=== PATIENT | male | born 1965 | race Two or more races ===

== ENCOUNTER 2017-05-29 12:31 | Emergency (ER) | payer MEDICAID ==
[~2017-05-29] VITALS: Ht 160 cm; Wt 58.1 kg
[~2017-05-29 12:31] MED LIST: ALBUAER3 IN
[2017-05-29 12:45] VITALS: BP 104/53
== END 2017-05-29 14:41 | disposition home or self-care (01) ==
LOC: ER 12:38
DX: S90.02XA Contusion of left ankle, initial encounter (principal); M19.072 Primary osteoarthritis, left ankle and foot; J45.909 Unspecified asthma, uncomplicated; F17.210 Nicotine dependence, cigarettes, uncomplicated; Z79.899 Other long term (current) drug therapy
CPT/HCPCS: 73610

== ENCOUNTER 2018-10-21 14:40 | Emergency (ER) | payer MEDICAID ==
[~2018-10-21] VITALS: Ht 167.6 cm; Wt 63.5 kg
[2018-10-21 14:42] VITALS: BP 118/77
[2018-10-21] MEDS ORDERED: ALBUTEROL SULF 2.5 MG/0.5ML(0.5%) NEB SOLN NEB ONE (16:30)
[2018-10-21] MEDS ORDERED: IPRATROPIUM BROM 0.5 MG/2.5ML INH SOL NEB ONE (16:30)
== END 2018-10-21 17:00 | disposition home or self-care (01) ==
LOC: EDBD 14:40 → ER 14:55
DX: J45.909 Unspecified asthma, uncomplicated (principal); F17.210 Nicotine dependence, cigarettes, uncomplicated; F12.10 Cannabis abuse, uncomplicated; F15.10 Other stimulant abuse, uncomplicated
CPT/HCPCS: 71046; 93005; 94640; 99283; J7611; J7644

== ENCOUNTER 2018-10-25 02:51 | Emergency (ER) | payer MEDICAID ==
[~2018-10-25] VITALS: Ht 170.2 cm; Wt 63.5 kg
[2018-10-25 03:42] LABS: Basophils # (auto) 0.1 uL; Basophils % (auto) 1.2 % (0.0-2.0); Eosinophils # (auto) 0.6 uL; Eosinophils % (auto) 7.7 % (0.0-7.0); Hematocrit 42.4 % (41.0-53.0); Hemoglobin 14.5 g/dL (13.5-17.5); Lymphocytes % (auto) 23.7 % (10.0-50.0); Mean Corpuscular Hemoglobin 31.6 pg (28.0-32.0); Mean Corpuscular Hgb Conc. 34.2 g/dL (32.0-36.0); Mean Corpuscular Volume 92.5 fL (80.0-100.0); Monocytes # (auto) 0.8 uL; Monocytes % (auto) 9.2 % (0.0-12.0); Neutrophils # (auto) 4.9 uL; Neutrophils % (auto) 58.2 % (37.0-80.0); Nucleated Red Blood Cells % 0.1 %; Platelet Count (auto) 316 10^3/uL (140-450); Red Blood Cells 4.58 10^6/uL (4.5-5.90); Red Cell Distribution Width 13.4 % (11.8-14.3); White Blood Cell 8.3 10^3/uL (4.4-10.8)
[2018-10-25 04:00] LABS: Salicylate < 1.7 mg/dL (2.8-20.0)
[2018-10-25 04:02] LABS: Albumin 2.9 g/dL (3.4-5.0); Anion Gap 4 (5-15); BUN/Creatinine Ratio 18.3; Blood Alcohol < 3.0 mg/dL (0-5); Blood Urea Nitrogen 13 mg/dL (7-18); Calcium 7.7 mg/dL (8.5-10.1); Carbon Dioxide 27 mmol/L (21-32); Chloride 108 mmol/L (98-107); GFR African American 150 mL/min; GFR Non-African American 124 mL/min; Glucose 98 mg/dL (74-106); INR 0.94 (0.9-1.15); Magnesium 2.4 mg/dL (1.6-2.6); Partial Thromboplastin Time 30.3 sec (23.78-33.04); Potassium 3.6 mmol/L (3.5-5.1); Prothrombin Time 10.1 sec (9.27-12.13); Sodium 139 mmol/L (136-145)
[2018-10-25 04:07] LABS: Acetaminophen < 2.0 ug/mL (10-30); Alanine Aminotransferase 19 U/L (16-61); Alkaline Phosphatase 109 U/L (45-117); Aspartate Aminotransferase 15 U/L (15-37); Bilirubin, Total 0.5 mg/dL (0.2-1.0); Total Protein 7.1 g/dL (6.4-8.2)
[2018-10-25 07:30] VITALS: BP 120/83
[2018-10-25] MEDS ORDERED: cefTRIAXone SOD 1,000 MG VL IM ONE (07:30)
[2018-10-25] MEDS ORDERED: methylPREDNISolone SOD SUCC 125 MG/2 ML VL IM ONE (07:30)
[2018-10-25] MEDS ORDERED: ALBUTEROL SULF 2.5 MG/0.5ML(0.5%) NEB SOLN NEB ONE (07:30)
== END 2018-10-25 10:25 | disposition home or self-care (01) ==
LOC: EDBD 02:51 → ER 02:56
DX: J44.9 Chronic obstructive pulmonary disease, unspecified (principal); F12.10 Cannabis abuse, uncomplicated
CPT/HCPCS: 36415; 71046; 80053; 80320; 80329; 82962; 83735; 83880; 84484; 85025; 85610; 85730; 93005; 94640; 96372; 99284; J0696; J2930; J7611

== ENCOUNTER 2018-10-31 03:15 | Emergency (ER) | payer MEDICAID ==
[~2018-10-31] VITALS: Ht 172.7 cm; Wt 63.5 kg
[2018-10-31] MEDS ORDERED: cefTRIAXone SOD 1,000 MG VL IM ONE (07:00)
[2018-10-31 07:16] LABS: Alcohol, Urine < 3.0 mg/dL (0-5); Amphetamine Screen, Urine POSITIVE (NEGATIVE); Barbiturate Scree,Urine NEGATIVE (NEGATIVE); Benzodiazephine Screen, Urine NEGATIVE (NEGATIVE); Cannabinoid Screen, Urine POSITIVE (NEGATIVE); Cocaine Screen, Urine NEGATIVE (NEGATIVE); Opiate Scree,Urine NEGATIVE (NEGATIVE); Phencyclidine Screen, Urine NEGATIVE (NEGATIVE)
[2018-10-31 08:08] VITALS: BP 133/87
[2018-10-31] MEDS ORDERED: LIDOCAINE 2% (LOCAL ANESTH.) PF 5ml SDV IJ ONE (08:30)
== END 2018-10-31 09:00 | disposition home or self-care (01) ==
LOC: EDBD 03:15 → ER 03:18
DX: J40 Bronchitis, not specified as acute or chronic (principal); F15.90 Other stimulant use, unspecified, uncomplicated; F12.90 Cannabis use, unspecified, uncomplicated
CPT/HCPCS: 71046; 80307; 96372; 99284; J0696; J2001

== ENCOUNTER 2018-11-11 11:52 | Emergency (ER) | payer MEDICAID ==
[~2018-11-11] VITALS: Ht 170.2 cm; Wt 63.5 kg
[2018-11-11] MEDS ORDERED: ALBUTEROL SULF 2.5 MG/0.5ML(0.5%) NEB SOLN NEB ONE (12:15)
[2018-11-11] MEDS ORDERED: methylPREDNISolone SOD SUCC 125 MG/2 ML VL IV ONE (12:15)
[2018-11-11] MEDS ORDERED: cefTRIAXone 1GM/50ML D5W 50 ML IV ONE (12:15)
[2018-11-11] MEDS ORDERED: IPRATROPIUM BROM 0.5 MG/2.5ML INH SOL NEB ONE (12:15)
[2018-11-11] MEDS ORDERED: SODIUM CHLORIDE 0.9% 1,000 ML IV ONE (12:27)
[2018-11-11 13:16] LABS: Basophils # (auto) 0.1 uL; Basophils % (auto) 0.9 % (0.0-2.0); Eosinophils # (auto) 0.4 uL; Eosinophils % (auto) 6.3 % (0.0-7.0); Hematocrit 46.3 % (41.0-53.0); Hemoglobin 15.8 g/dL (13.5-17.5); Lymphocytes # (auto) 2.4 uL; Lymphocytes % (auto) 38.2 % (10.0-50.0); Mean Corpuscular Hemoglobin 31.5 pg (28.0-32.0); Mean Corpuscular Hgb Conc. 34.1 g/dL (32.0-36.0); Mean Corpuscular Volume 92.2 fL (80.0-100.0); Monocytes # (auto) 0.7 uL; Monocytes % (auto) 10.6 % (0.0-12.0); Neutrophils # (auto) 2.7 uL; Nucleated Red Blood Cells % 0.1 %; Platelet Count (auto) 306 10^3/uL (140-450); Red Blood Cells 5.02 10^6/uL (4.5-5.90); Red Cell Distribution Width 14.2 % (11.8-14.3); White Blood Cell 6.2 10^3/uL (4.4-10.8)
[2018-11-11 13:29] LABS: Chloride 104 mmol/L (98-107); Potassium 3.9 mmol/L (3.5-5.1); Sodium 140 mmol/L (136-145)
[2018-11-11 13:32] LABS: Albumin 3.5 g/dL (3.4-5.0); Anion Gap 5 (5-15); Blood Urea Nitrogen 10 mg/dL (7-18); Calcium 8.8 mg/dL (8.5-10.1); Carbon Dioxide 31 mmol/L (21-32); Glucose 99 mg/dL (74-106)
[2018-11-11 13:39] LABS: Alkaline Phosphatase 107 U/L (45-117); Aspartate Aminotransferase 17 U/L (15-37); BUN/Creatinine Ratio 12.7; Bilirubin, Total 0.3 mg/dL (0.2-1.0); GFR African American 132 mL/min; GFR Non-African American 109 mL/min; Total Protein 7.6 g/dL (6.4-8.2)
[2018-11-11 13:44] LABS: Alanine Aminotransferase 26 U/L (16-61)
[2018-11-11 15:00] VITALS: BP 120/20
[2018-11-11] MEDS ORDERED: ONDANSETRON HCL 4 MG/2 ML VIAL ONE (15:10)
[2018-11-11] MEDS ORDERED: ONDANSETRON HCL 4 MG/2 ML VIAL IV ONE (15:30)
== END 2018-11-11 16:32 | disposition home or self-care (01) ==
LOC: EDBD 11:52 → ER 11:54
DX: J44.1 Chronic obstructive pulmonary disease with (acute) exacerbation (principal); F17.210 Nicotine dependence, cigarettes, uncomplicated; F12.10 Cannabis abuse, uncomplicated; F15.10 Other stimulant abuse, uncomplicated
CPT/HCPCS: 36415; 71046; 80053; 84484; 85025; 94640; 96365; 96375; 99284; J0696; J2405; J2930; J7030; J7611; J7644

== ENCOUNTER 2018-12-18 04:04 | Emergency (ER) | payer MEDICAID ==
[~2018-12-18] VITALS: Ht 162.6 cm; Wt 69.9 kg
[2018-12-18 06:57] LABS: Basophils # (auto) 0.1 uL; Basophils % (auto) 1.4 % (0.0-2.0); Eosinophils # (auto) 0.4 uL; Hematocrit 45.2 % (41.0-53.0); Hemoglobin 15.3 g/dL (13.5-17.5); Lymphocytes # (auto) 1.8 uL; Lymphocytes % (auto) 38.6 % (10.0-50.0); Mean Corpuscular Hemoglobin 31.9 pg (28.0-32.0); Mean Corpuscular Hgb Conc. 33.8 g/dL (32.0-36.0); Mean Corpuscular Volume 94.3 fL (80.0-100.0); Monocytes # (auto) 0.4 uL; Monocytes % (auto) 7.5 % (0.0-12.0); Neutrophils # (auto) 2.1 uL; Neutrophils % (auto) 44.5 % (37.0-80.0); Nucleated Red Blood Cells % 0.1 %; Platelet Count (auto) 238 10^3/uL (140-450); Red Blood Cells 4.79 10^6/uL (4.5-5.90); White Blood Cell 4.8 10^3/uL (4.4-10.8)
[2018-12-18 07:16] LABS: Albumin 3.3 g/dL (3.4-5.0); Anion Gap 6 (5-15); Blood Urea Nitrogen 10 mg/dL (7-18); Calcium 8.2 mg/dL (8.5-10.1); Carbon Dioxide 23 mmol/L (21-32); Chloride 112 mmol/L (98-107); Glucose 100 mg/dL (74-106); Sodium 141 mmol/L (136-145)
[2018-12-18 07:22] LABS: Alanine Aminotransferase 29 U/L (16-61); Alkaline Phosphatase 105 U/L (45-117); Aspartate Aminotransferase 24 U/L (15-37); BUN/Creatinine Ratio 15.2; Bilirubin, Total 0.3 mg/dL (0.2-1.0); GFR African American 163 mL/min; GFR Non-African American 135 mL/min; Total Protein 6.9 g/dL (6.4-8.2)
[2018-12-18 07:37] VITALS: BP 128/83
[2018-12-18 07:39] LABS: Urine WBC None Seen /hpf (0 - 3)
[2018-12-18 07:46] LABS: Urine Bacteria NONE SEEN /hpf (None Seen); Urine Blood Negative /uL (Negative); Urine Specific Gravity 1.005 (1.001-1.035)
== END 2018-12-18 08:46 | disposition home or self-care (01) ==
LOC: ER 04:04 → EDBD 04:04 → ER 08:46
DX: J45.901 Unspecified asthma with (acute) exacerbation (principal); E44.1 Mild protein-calorie malnutrition; F12.10 Cannabis abuse, uncomplicated; F15.10 Other stimulant abuse, uncomplicated; Z68.26 Body mass index [BMI] 26.0-26.9, adult; Z87.891 Personal history of nicotine dependence; Z59.0 Homelessness
CPT/HCPCS: 36415; 71045; 80053; 81001; 84484; 85025; 93005

== ENCOUNTER 2019-03-01 09:39 | Emergency (ER) | payer MEDICAID ==
[~2019-03-01] VITALS: Ht 170.2 cm; Wt 63.5 kg
[2019-03-01 10:00] VITALS: BP 107/65
[2019-03-01] MEDS ORDERED: IPRATROPIUM BROM 0.5 MG/2.5ML INH SOL NEB ONE (12:15)
[2019-03-01] MEDS ORDERED: methylPREDNISolone SOD SUCC 125 MG/2 ML VL IV ONE (12:15)
[2019-03-01] MEDS ORDERED: ALBUTEROL SULF 2.5 MG/0.5ML(0.5%) NEB SOLN NEB ONE (12:15)
== END 2019-03-01 13:11 | disposition home or self-care (01) ==
LOC: EDSEX 09:39 → EDBD 09:39 → ER 09:47
DX: J45.901 Unspecified asthma with (acute) exacerbation (principal); F17.200 Nicotine dependence, unspecified, uncomplicated; F12.10 Cannabis abuse, uncomplicated; F15.10 Other stimulant abuse, uncomplicated; Z59.0 Homelessness
CPT/HCPCS: 71046; 94640; 96374; 99283; J2930; J7611; J7644

== ENCOUNTER 2019-03-14 13:01 | Emergency (ER) | payer MEDICAID ==
[~2019-03-14] VITALS: Ht 167.6 cm; Wt 63.5 kg
[2019-03-14] MEDS ORDERED: ALBUTEROL SULF 2.5 MG/0.5ML(0.5%) NEB SOLN HHN ONE (13:15)
[2019-03-14] MEDS ORDERED: methylPREDNISolone SOD SUCC 125 MG/2 ML VL IV ONE (13:15)
[2019-03-14 13:46] LABS: Hematocrit 45.9 % (41.0-53.0); Hemoglobin 15.7 g/dL (13.5-17.5); Mean Corpuscular Hemoglobin 32.5 pg (28.0-32.0); Mean Corpuscular Hgb Conc. 34.2 g/dL (32.0-36.0); Platelet Count (auto) 287 10^3/uL (140-450); Red Blood Cells 4.84 10^6/uL (4.5-5.90); Red Cell Distribution Width 13.3 % (11.8-14.3)
[2019-03-14 13:48] LABS: Band Neutrophils % (manual) 0; Basophils % (manual) 0 (0.0-2.0); Blast Cells 0; Metamyelocytes % 0; Myelocytes % 0; Promyelocytes % 0; Reactive Lymphocytes 0
[2019-03-14 14:09] VITALS: BP 121/74
[2019-03-14 14:12] LABS: Albumin 3.3 g/dL (3.4-5.0); Calcium 8.5 mg/dL (8.5-10.1)
[2019-03-14 14:15] LABS: Eosinophils % (manual) 13 (0-7); Lymphocytes % (manual) 28 (10.0-50.0); Monocytes % (manual) 7 (0-12)
[2019-03-14 14:19] LABS: BUN/Creatinine Ratio 16.7; Bilirubin, Total 0.3 mg/dL (0.2-1.0); Total Protein 7.1 g/dL (6.4-8.2)
== END 2019-03-14 15:32 | disposition home or self-care (01) ==
LOC: EDBD 13:01 → EDSEX 13:01 → ER 13:07
DX: J45.901 Unspecified asthma with (acute) exacerbation (principal); F12.10 Cannabis abuse, uncomplicated; F15.10 Other stimulant abuse, uncomplicated
CPT/HCPCS: 36415; 71045; 80053; 85007; 85027; 94640; 94761; 96374; 99284; J2930; J7611; 94644

== ENCOUNTER → 2020-03-25 | Emergency (ER) | payer MEDICAID ==
[~2020-03-25] VITALS: Ht 167.6 cm; Wt 59.0 kg
[~2020-03-25] MED LIST changes: +LORazepam 2MG/ML-1ML VIAL IV ONE; +POTASSIUM EFFERVESENT TAB 25 MEQ PO ONE; +SODIUM CHLORIDE 0.9% 1,000 ML IV ONE
[2020-03-25 17:23] LABS: Basophils # (auto) 0.1 10 ^3/uL (0-0.2); Basophils % (auto) 0.9 % (0.0-2.0); Eosinophils # (auto) 0.1 10 ^3/uL (0-0.8); Eosinophils % (auto) 1.3 % (0.0-7.0); Hematocrit 49.7 % (41.0-53.0); Hemoglobin 17.1 g/dL (13.5-17.5); Lymphocytes # (auto) 1.8 10 ^3/uL (0.4-5.4); Lymphocytes % (auto) 25.3 % (10.0-50.0); Mean Corpuscular Hemoglobin 30.9 pg (28.0-32.0); Mean Corpuscular Hgb Conc. 34.5 g/dL (32.0-36.0); Mean Corpuscular Volume 89.7 fL (80.0-100.0); Monocytes % (auto) 13.6 % (0.0-12.0); Neutrophils # (auto) 4.2 10 ^3/uL (1.6-8.6); Neutrophils % (auto) 58.9 % (37.0-80.0); Platelet Count (auto) 307 10^3/uL (140-450); Red Blood Cells 5.54 10^6/uL (4.5-5.90); Red Cell Distribution Width 14.7 % (11.8-14.3); White Blood Cell 7.1 10^3/uL (4.4-10.8)
[2020-03-25 17:32] LABS: Albumin 4.3 g/dL (3.4-5.0); Magnesium 2.5 mg/dL (1.6-2.6)
[2020-03-25 17:35] LABS: BUN/Creatinine Ratio 9.7; Bilirubin, Total 1.7 mg/dL (0.2-1.0); Total Protein 8.7 g/dL (6.4-8.2)
[2020-03-25 17:55] LABS: Potassium 2.7 mmol/L (3.5-5.1)
[2020-03-25 19:25] LABS: Urine Bacteria NONE SEEN /hpf (None Seen); Urine Blood Negative /uL (Negative); Urine Hyaline Cast MANY /lpf (0 - 2); Urine Mucus FEW (None Seen); Urine Specific Gravity 1.015 (1.001-1.035); Urine Sperm PRESENT /hpf (None Seen); Urine WBC 1 /hpf (0 - 3)
[2020-03-25 19:35] VITALS: BP 137/65
[2020-03-25 19:37] LABS: Alcohol, Urine < 3.0 mg/dL (0-10); Amphetamine Screen, Urine POSITIVE (NEGATIVE); Barbiturate Scree,Urine NEGATIVE (NEGATIVE); Benzodiazephine Screen, Urine NEGATIVE (NEGATIVE); Cannabinoid Screen, Urine POSITIVE (NEGATIVE); Cocaine Screen, Urine NEGATIVE (NEGATIVE); Opiate Scree,Urine NEGATIVE (NEGATIVE); Phencyclidine Screen, Urine NEGATIVE (NEGATIVE)
== END | disposition home or self-care (01) ==
LOC: EDUNIT# 16:24 → EDBD 16:32 → ER 16:32 → EDSEX 16:32
DX: T67.5XXA Heat exhaustion, unspecified, initial encounter (principal); E87.6 Hypokalemia; F15.10 Other stimulant abuse, uncomplicated; R25.2 Cramp and spasm; N18.3 Chronic kidney disease, stage 3 (moderate); J45.909 Unspecified asthma, uncomplicated; X58.XXXA Exposure to other specified factors, initial encounter; Y93.89 Activity, other specified; Y92.89 Other specified places as the place of occurrence of the external cause; Y99.8 Other external cause status
CPT/HCPCS: 36415; 80053; 80307; 81001; 83735; 85025; 93005; 96360; 99285; J7030

== ENCOUNTER 2020-04-18 15:40 | Emergency (ER) | payer MEDICAID ==
[~2020-04-18] VITALS: Ht 165.1 cm; Wt 63.5 kg
[~2020-04-18 15:40] MED LIST changes: -LORazepam 2MG/ML-1ML VIAL IV ONE; -POTASSIUM EFFERVESENT TAB 25 MEQ PO ONE; -SODIUM CHLORIDE 0.9% 1,000 ML IV ONE
[2020-04-18] MEDS ORDERED: cefTRIAXone 1GM/50ML D5W 50 ML IV ONE (16:00)
[2020-04-18] MEDS ORDERED: methylPREDNISolone SOD SUCC 125 MG/2 ML VL IV ONE (16:00)
[2020-04-18] MEDS ORDERED: SODIUM CHLORIDE 0.9% 1,000 ML IV ONE (16:00)
[2020-04-18 16:41] LABS: INR 0.97 (0.9-1.15); Partial Thromboplastin Time 28.6 sec (23.0-31.2)
[2020-04-18 16:45] LABS: Alanine Aminotransferase 33 U/L (16-61); Albumin 3.6 g/dL (3.4-5.0); Anion Gap 8 (5-15); Aspartate Aminotransferase 23 U/L (15-37); BUN/Creatinine Ratio 12.5; Blood Urea Nitrogen 15 mg/dL (7-18); Calcium 8.6 mg/dL (8.5-10.1); Carbon Dioxide 26 mmol/L (21-32); Chloride 105 mmol/L (98-107); GFR African American 81 mL/min; GFR Non-African American 67 mL/min; Glucose 117 mg/dL (74-106); Potassium 3.4 mmol/L (3.5-5.1); Sodium 139 mmol/L (136-145)
[2020-04-18 16:47] LABS: Lactic Acid w/Reflex 2.1 mmol/L (0.4-2.0)
[2020-04-18 16:49] LABS: Alkaline Phosphatase 122 U/L (45-117); Bilirubin, Total 0.8 mg/dL (0.2-1.0); Total Protein 7.7 g/dL (6.4-8.2)
[2020-04-18 16:57] LABS: Basophils # (auto) 0.1 10 ^3/uL (0-0.2); Basophils % (auto) 1.3 % (0.0-2.0); Eosinophils # (auto) 0.5 10 ^3/uL (0-0.8); Eosinophils % (auto) 8.1 % (0.0-7.0); Hematocrit 49.2 % (41.0-53.0); Hemoglobin 16.5 g/dL (13.5-17.5); Lymphocytes # (auto) 2.4 10 ^3/uL (0.4-5.4); Lymphocytes % (auto) 42.4 % (10.0-50.0); Mean Corpuscular Hemoglobin 30.4 pg (28.0-32.0); Mean Corpuscular Hgb Conc. 33.6 g/dL (32.0-36.0); Mean Corpuscular Volume 90.7 fL (80.0-100.0); Monocytes # (auto) 0.4 10 ^3/uL (0-1.3); Monocytes % (auto) 6.5 % (0.0-12.0); Neutrophils # (auto) 2.4 10 ^3/uL (1.6-8.6); Neutrophils % (auto) 41.7 % (37.0-80.0); Platelet Count (auto) 318 10^3/uL (140-450); Red Blood Cells 5.43 10^6/uL (4.5-5.90); Red Cell Distribution Width 16.1 % (11.8-14.3); White Blood Cell 5.7 10^3/uL (4.4-10.8)
[2020-04-18] MEDS ORDERED: ONDANSETRON HCL 4 MG/2 ML VIAL IV ONE (17:30)
[2020-04-18] MEDS ORDERED: THIAMINE 100mg/ml INJ (200mg/2ml VIAL) IV ONE (17:30)
[2020-04-18] MEDS ORDERED: ONDANSETRON HCL 4 MG/2 ML VIAL IV PRN (18:15)
[2020-04-18] MEDS ORDERED: HYDROcodone-ACET 5/325MG TAB PO PRN (18:15)
[2020-04-18] MEDS ORDERED: MORPHINE SULF INJ 2 MG/ML SYRINGE 1ML IV PRN (18:15)
[2020-04-18] MEDS ORDERED: ACETAMINOPHEN 325 MG TAB PO PRN (18:15)
[2020-04-18] MEDS: AZITHROMYCIN 500MG/ 250ML 250 ML IV SCH ×2 (18:23→23:13)
[2020-04-18 19:58] VITALS: BP 113/81
[2020-04-18] MEDS ORDERED: methylPREDNISolone SOD SUCC 40 MG/ML VL IV SCH (22:00)
[2020-04-18 22:53] LABS: Urine Bacteria NONE SEEN /hpf (None Seen); Urine Blood Negative /uL (Negative); Urine Mucus FEW (None Seen); Urine Specific Gravity 1.024 (1.001-1.035); Urine WBC 1 /hpf (0 - 3)
--- NOTE | 2020-04-18 23:28 | NUR ---
Respiratory note: MED NEB TX HELD AT THIS TIME, AWAITING COVID RESULTS. PT IN NO RESPIRATORY DISTRESS, WILL CONTINUE TO MONITOR.
[2020-04-19] MEDS ORDERED: ALBUTEROL SULF 2.5 MG/0.5ML(0.5%) NEB SOLN NEB SCH
[2020-04-19] MEDS ORDERED: IPRATROPIUM BROM 0.5 MG/2.5ML INH SOL NEB SCH
[2020-04-19 06:11] VITALS: BP 113/77
[2020-04-19] MEDS ORDERED: ENOXAPARIN SOD 40 MG/0.4 ML SYRINGE SC SCH (10:00)
== END 2020-04-19 06:17 | disposition home or self-care (01) ==
LOC: ER 15:40 → EDBD 15:40 → ER 04-19 06:17
DX: J45.901 Unspecified asthma with (acute) exacerbation (principal); F15.10 Other stimulant abuse, uncomplicated; F17.210 Nicotine dependence, cigarettes, uncomplicated; Z20.828 Contact with and (suspected) exposure to other viral communicable diseases
CPT/HCPCS: 36415; 71045; 80053; 80320; 81001; 83605; 83880; 84484; 85025; 85610; 85730; 87040; 87426; 96365; 96366; 96367; 96375; 99285; C9803; J0456; J0696; J2405; J2920; J2930; J3411; U0003

== ENCOUNTER 2020-05-07 14:49 | Emergency (ER) | payer MEDICAID ==
[~2020-05-07] VITALS: Ht 175.3 cm; Wt 77.1 kg
[2020-05-07] MEDS ORDERED: ALBUTEROL SULF 2.5 MG/0.5ML(0.5%) NEB SOLN NEB ONE (15:00)
[2020-05-07] MEDS ORDERED: IPRATROPIUM BROM 0.5 MG/2.5ML INH SOL NEB ONE (15:00)
[2020-05-07] MEDS ORDERED: methylPREDNISolone SOD SUCC 125 MG/2 ML VL IV ONE (15:00)
[2020-05-07 16:35] LABS: Basophils # (auto) 0 10 ^3/uL (0-0.2); Basophils % (auto) 1.2 % (0.0-2.0); Eosinophils # (auto) 0.2 10 ^3/uL (0-0.8); Eosinophils % (auto) 6.1 % (0.0-7.0); Hematocrit 48.8 % (41.0-53.0); Hemoglobin 16.3 g/dL (13.5-17.5); Lymphocytes # (auto) 1.9 10 ^3/uL (0.4-5.4); Lymphocytes % (auto) 46.4 % (10.0-50.0); Mean Corpuscular Hemoglobin 30.8 pg (28.0-32.0); Mean Corpuscular Hgb Conc. 33.4 g/dL (32.0-36.0); Mean Corpuscular Volume 92.2 fL (80.0-100.0); Monocytes # (auto) 0.2 10 ^3/uL (0-1.3); Monocytes % (auto) 5.8 % (0.0-12.0); Neutrophils # (auto) 1.6 10 ^3/uL (1.6-8.6); Neutrophils % (auto) 40.5 % (37.0-80.0); Nucleated Red Blood Cells % 0.1 %; Platelet Count (auto) 328 10^3/uL (140-450); Red Cell Distribution Width 16.3 % (11.8-14.3)
[2020-05-07 16:52] LABS: Albumin 3.7 g/dL (3.4-5.0); Anion Gap 4 (5-15); Blood Urea Nitrogen 5 mg/dL (7-18); Calcium 8.3 mg/dL (8.5-10.1); Carbon Dioxide 31 mmol/L (21-32); Chloride 105 mmol/L (98-107); Glucose 126 mg/dL (74-106); Sodium 140 mmol/L (136-145)
[2020-05-07 16:57] LABS: Alanine Aminotransferase 26 U/L (16-61); Alkaline Phosphatase 102 U/L (45-117); Aspartate Aminotransferase 21 U/L (15-37); BUN/Creatinine Ratio 6.3; GFR African American 130 mL/min; GFR Non-African American 107 mL/min; Total Protein 7.2 g/dL (6.4-8.2)
[2020-05-07 17:00] VITALS: BP 129/75
== END 2020-05-07 17:12 | disposition home or self-care (01) ==
LOC: EDBD 14:49 → ER 14:49
DX: J45.41 Moderate persistent asthma with (acute) exacerbation (principal); F17.210 Nicotine dependence, cigarettes, uncomplicated
CPT/HCPCS: 36415; 71045; 80053; 84484; 85025; 94640; 96374; 99284; J2930; J7644

== ENCOUNTER 2020-07-25 05:59 | Emergency (ER) | payer MEDICAID ==
[~2020-07-25] VITALS: Ht 162.6 cm; Wt 65.8 kg
[2020-07-25 06:34] LABS: Urine Bacteria NONE SEEN /hpf (None Seen); Urine Blood Negative /uL (Negative); Urine Specific Gravity 1.013 (1.001-1.035); Urine WBC <1 /hpf (0 - 3)
[2020-07-25 07:47] LABS: Basophils # (auto) 0.1 10 ^3/uL (0-0.2); Eosinophils # (auto) 0.3 10 ^3/uL (0-0.8); Eosinophils % (auto) 4.7 % (0.0-7.0); Hematocrit 44.8 % (41.0-53.0); Hemoglobin 15.5 g/dL (13.5-17.5); Lymphocytes # (auto) 1.6 10 ^3/uL (0.4-5.4); Lymphocytes % (auto) 29.9 % (10.0-50.0); Mean Corpuscular Hemoglobin 32.6 pg (28.0-32.0); Mean Corpuscular Hgb Conc. 34.5 g/dL (32.0-36.0); Mean Corpuscular Volume 94.4 fL (80.0-100.0); Monocytes # (auto) 0.5 10 ^3/uL (0-1.3); Monocytes % (auto) 8.3 % (0.0-12.0); Neutrophils # (auto) 3.1 10 ^3/uL (1.6-8.6); Neutrophils % (auto) 56.1 % (37.0-80.0); Nucleated Red Blood Cells % 0.1 %; Platelet Count (auto) 287 10^3/uL (140-450); Red Blood Cells 4.74 10^6/uL (4.5-5.90); Red Cell Distribution Width 13.2 % (11.8-14.3); White Blood Cell 5.4 10^3/uL (4.4-10.8)
[2020-07-25 07:54] LABS: Chloride 103 mmol/L (98-107); Sodium 135 mmol/L (136-145)
[2020-07-25 07:56] LABS: INR 0.92 (0.9-1.15); Partial Thromboplastin Time 29.7 sec (23.0-31.2)
[2020-07-25 08:21] LABS: Alanine Aminotransferase 35 U/L (16-61); Albumin 3.8 g/dL (3.4-5.0); Alkaline Phosphatase 121 U/L (45-117); Anion Gap 5 (5-15); Aspartate Aminotransferase 28 U/L (15-37); BUN/Creatinine Ratio 10.4; Bilirubin, Total 0.5 mg/dL (0.2-1.0); Blood Urea Nitrogen 8 mg/dL (7-18); Calcium 8.8 mg/dL (8.5-10.1); Carbon Dioxide 27 mmol/L (21-32); GFR African American 135 mL/min; GFR Non-African American 112 mL/min; Glucose 82 mg/dL (74-106); Magnesium 2.2 mg/dL (1.6-2.6)
[2020-07-25 08:50] VITALS: BP 127/82
== END 2020-07-25 09:12 | disposition home or self-care (01) ==
LOC: ER 05:59
DX: J45.901 Unspecified asthma with (acute) exacerbation (principal); N39.0 Urinary tract infection, site not specified; R07.9 Chest pain, unspecified; F17.210 Nicotine dependence, cigarettes, uncomplicated; F12.10 Cannabis abuse, uncomplicated; F15.10 Other stimulant abuse, uncomplicated; Z59.0 Homelessness; Z20.822 Contact with and (suspected) exposure to COVID-19
CPT/HCPCS: 36415; 71045; 74176; 80053; 81001; 83735; 83880; 84484; 85025; 85610; 85730; 87426; 93005; 99285; C9803; U0003

== ENCOUNTER 2021-01-18 00:29 | Emergency (ER) | payer MEDICAID ==
[~2021-01-18] VITALS: Ht 170.2 cm; Wt 48.1 kg
[2021-01-18 05:15] VITALS: BP 146/89
[2021-01-18] MEDS ORDERED: ALBUTEROL SULF 2.5 MG/0.5ML(0.5%) NEB SOLN NEB ONE (05:30)
== END 2021-01-18 07:29 | disposition home or self-care (01) ==
LOC: EDBD 00:29 → ER 00:29
DX: J45.909 Unspecified asthma, uncomplicated (principal); F17.210 Nicotine dependence, cigarettes, uncomplicated; Z76.0 Encounter for issue of repeat prescription
CPT/HCPCS: 94640

== ENCOUNTER 2021-12-06 05:50 | Emergency (ER) | payer MEDICAID ==
[~2021-12-06] VITALS: Ht 175.3 cm; Wt 72.6 kg
[2021-12-06] MEDS ORDERED: SODIUM CHLORIDE 0.9% 500 ML IV ONE (08:15)
[2021-12-06] MEDS ORDERED: SODIUM CHLORIDE 0.9% 1,000 ML IV ONE (08:15)
[2021-12-06] MEDS ORDERED: methylPREDNISolone SOD SUCC 125 MG/2 ML VL IV ONE (08:15)
[2021-12-06] MEDS ORDERED: IPRATROPIUM BROM 0.5 MG/2.5ML INH SOL NEB ONE (08:15)
[2021-12-06] MEDS ORDERED: ALBUTEROL SULF 2.5 MG/0.5ML(0.5%) NEB SOLN NEB ONE (08:15)
[2021-12-06] MEDS ORDERED: IPRATROPIUM BROM 0.5 MG/2.5ML INH SOL ONE (08:44)
[2021-12-06] MEDS ORDERED: ALBUTEROL SULF 2.5 MG/0.5ML(0.5%) NEB SOLN ONE (08:44)
[2021-12-06] MEDS ORDERED: methylPREDNISolone SOD SUCC 125 MG/2 ML VL ONE (08:59)
[2021-12-06 09:04] LABS: Basophils # (auto) 0.1 10 ^3/uL (0-0.2); Basophils % (auto) 1.7 % (0.0-2.0); Eosinophils # (auto) 0.2 10 ^3/uL (0-0.8); Eosinophils % (auto) 3.8 % (0.0-7.0); Hematocrit 46.6 % (41.0-53.0); Hemoglobin 16.3 g/dL (13.5-17.5); Lymphocytes # (auto) 1.3 10 ^3/uL (0.4-5.4); Mean Corpuscular Hemoglobin 32.8 pg (28.0-32.0); Mean Corpuscular Volume 93.9 fL (80.0-100.0); Monocytes # (auto) 0.3 10 ^3/uL (0-1.3); Monocytes % (auto) 7.4 % (0.0-12.0); Neutrophils # (auto) 2.3 10 ^3/uL (1.6-8.6); Neutrophils % (auto) 56.1 % (37.0-80.0); Nucleated Red Blood Cells % 0.1 %; Red Blood Cells 4.96 10^6/uL (4.5-5.90); Red Cell Distribution Width 14.3 % (11.8-14.3); White Blood Cell 4.2 10^3/uL (4.4-10.8)
[2021-12-06 09:06] LABS: Albumin 3.5 g/dL (3.4-5.0); Calcium 8.3 mg/dL (8.5-10.1); Magnesium 2.5 mg/dL (1.6-2.6); Potassium 3.9 mmol/L (3.5-5.1)
[2021-12-06 09:10] LABS: BUN/Creatinine Ratio 14.9; Bilirubin, Total 0.7 mg/dL (0.2-1.0); Total Protein 7.5 g/dL (6.4-8.2)
[2021-12-06 12:00] VITALS: BP 141/61
[2021-12-06] MEDS ORDERED: PRED20TA2 PO (12:02)
[2021-12-06] MEDS ORDERED: AZIT500T PO (12:02)
[2021-12-06] MEDS ORDERED: ALBU108A5 IN (12:02)
== END 2021-12-06 12:18 | disposition home or self-care (01) ==
LOC: EDBD 05:50 → ER 05:50
DX: J44.1 Chronic obstructive pulmonary disease with (acute) exacerbation (principal); F17.210 Nicotine dependence, cigarettes, uncomplicated; F12.10 Cannabis abuse, uncomplicated; F15.10 Other stimulant abuse, uncomplicated; Z59.00 Homelessness unspecified
CPT/HCPCS: 36415; 71046; 80053; 83735; 85025; 94640; 96361; 96374; 99285; J2930; J7030; J7040; J7644; 93005

== ENCOUNTER 2024-04-18 07:06 | Inpatient (IN) | payer MEDICAID ==
[~2024-04-18] VITALS: Ht 175.3 cm; Wt 54.2 kg
[2024-04-18] VITALS (14 sets, daily range): BP systolic 127–136; BP diastolic 72–80; PULSE 64–100; RESP 14–18; TEMP 98.1–98.2; O2SAT 95–100
[~2024-04-18 07:06] MED LIST changes: +ALBU108A5 IN; +AZIT500T PO; +LEVO500T91 PO; +PRED20TA2 PO
[2024-04-18] MEDS: ASPirin 325 MG TAB PO ONE (07:45)
[2024-04-18] MEDS: ALBUTEROL SULF 2.5 MG/0.5ML(0.5%) NEB SOLN NEB ONE ×2 (07:46→10:39)
[2024-04-18] MEDS: IPRATROPIUM BROM 0.5 MG/2.5ML INH SOL NEB ONE ×2 (07:46→10:39)
[2024-04-18] MEDS: methylPREDNISolone SOD SUCC 125 MG/2 ML VL IV ONE (07:59)
[2024-04-18] MEDS: cefTRIAXone 1GM/50ML D5W 50 ML IV ONE (08:03)
[2024-04-18 08:09] LABS: Chloride 105 mmol/L (98-107); Potassium 3.7 mmol/L (3.5-5.1); Sodium 137 mmol/L (136-145)
[2024-04-18 08:10] LABS: Anion Gap 3 (5-15); Carbon Dioxide 29 mmol/L (20-31)
[2024-04-18 08:11] LABS: Calcium 9.7 mg/dL (8.7-10.4)
[2024-04-18 08:15] LABS: Glucose 96 mg/dL (74-106)
[2024-04-18 08:16] LABS: BUN/Creatinine Ratio 9.5 (10.0-20.0); Blood Urea Nitrogen 8 mg/dL (9-23)
[2024-04-18 08:17] LABS: Eosinophils # (auto) 0.6 10 ^3/uL (0-0.8); Hemoglobin 17.9 g/dL (13.5-17.5); Lymphocytes # (auto) 1.9 10 ^3/uL (0.4-5.4); Monocytes # (auto) 0.4 10 ^3/uL (0-1.3); Neutrophils # (auto) 1.7 10 ^3/uL (1.6-8.6); Nucleated Red Blood Cells % 0.1 %
[2024-04-18 08:19] LABS: Basophils # (auto) 0.1 10 ^3/uL (0-0.2); Basophils % (auto) 1.1 % (0.0-2.0); Eosinophils % (auto) 12.2 % (0.0-7.0); Hematocrit 52.2 % (41.0-53.0); Lymphocytes % (auto) 41.9 % (10.0-50.0); Mean Corpuscular Hemoglobin 32.3 pg (28.0-32.0); Mean Corpuscular Hgb Conc. 34.3 g/dL (32.0-36.0); Mean Corpuscular Volume 94.2 fL (80.0-100.0); Monocytes % (auto) 8.5 % (0.0-12.0); Neutrophils % (auto) 36.3 % (37.0-80.0); Platelet Count (auto) 259 10^3/uL (140-450); Red Blood Cells 5.54 10^6/uL (4.5-5.90); Red Cell Distribution Width 14.3 % (11.8-14.3); White Blood Cell 4.6 10^3/uL (4.4-10.8)
[2024-04-18] MEDS: AZITHROMYCIN 500MG/ 250ML 250 ML IV ONE (09:51)
[2024-04-18] MEDS ORDERED: MORPHINE SULFATE INJ 2 MG/ml SYRG IV PRN (10:00)
[2024-04-18] MEDS ORDERED: ONDANSETRON HCL 4 MG/2 ML VIAL IV PRN (10:00)
[2024-04-18] MEDS ORDERED: NITROGLYCERIN 0.4 MG SL TAB SL PRN (10:00)
[2024-04-18] MEDS ORDERED: DOCUSATE SOD 100 MG CAP PO PRN (10:00)
[2024-04-18] MEDS: IPRATROPIUM BROM 0.5 MG/2.5ML INH SOL ONE (10:14)
[2024-04-18] MEDS: SODIUM CHLORIDE 0.9% 1,000 ML IV SCH (11:14)
[2024-04-18] MEDS: PANTOPRAZOLE 40 MG/10 ML VIAL INJ IV ONE (11:15)
[2024-04-18] MEDS: ALBUTEROL SULF 2.5 MG/0.5ML(0.5%) NEB SOLN NEB SCH (13:07)
[2024-04-18] MEDS: IPRATROPIUM BROM 0.5 MG/2.5ML INH SOL NEB SCH (13:08)
[2024-04-18 13:54] LABS: COVID19 ANTIGEN SOFIA FIA NEGATIVE (NEGATIVE); Rapid Influenza A Negative (Negative); Rapid Influenza B Negative (Negative)
[2024-04-18] MEDS: methylPREDNISolone SOD SUCC 125 MG/2 ML VL IV SCH (15:17)
[2024-04-19] VITALS (11 sets, daily range): BP systolic 96–121; BP diastolic 50–68; PULSE 55–101; RESP 16–19; TEMP 37.1; O2SAT 95–100
[2024-04-19 06:14] LABS: Basophils # (auto) 0 10 ^3/uL (0-0.2); Basophils % (auto) 0.1 % (0.0-2.0); Eosinophils # (auto) 0 10 ^3/uL (0-0.8); Hematocrit 47.2 % (41.0-53.0); Hemoglobin 16.4 g/dL (13.5-17.5); Lymphocytes # (auto) 0.9 10 ^3/uL (0.4-5.4); Lymphocytes % (auto) 6.2 % (10.0-50.0); Mean Corpuscular Hemoglobin 32.8 pg (28.0-32.0); Mean Corpuscular Hgb Conc. 34.8 g/dL (32.0-36.0); Mean Corpuscular Volume 94.2 fL (80.0-100.0); Monocytes # (auto) 0.3 10 ^3/uL (0-1.3); Monocytes % (auto) 2.2 % (0.0-12.0); Neutrophils % (auto) 91.5 % (37.0-80.0); Platelet Count (auto) 249 10^3/uL (140-450); Red Blood Cells 5.01 10^6/uL (4.5-5.90); Red Cell Distribution Width 14.2 % (11.8-14.3); White Blood Cell 14.2 10^3/uL (4.4-10.8)
[2024-04-19 06:17] LABS: Alanine Aminotransferase 15 U/L (7-40); Albumin 3.8 g/dL (3.2-4.8); Alkaline Phosphatase 93 U/L (46-116); Anion Gap 7 (5-15); Aspartate Aminotransferase 9 U/L (13-40); BUN/Creatinine Ratio 11.2 (10.0-20.0); Bilirubin, Total 0.5 mg/dL (0.2-1.0); Blood Urea Nitrogen 10 mg/dL (9-23); Calcium 9.5 mg/dL (8.7-10.4); Carbon Dioxide 26 mmol/L (20-31); Chloride 107 mmol/L (98-107); Glucose 162 mg/dL (74-106); Potassium 4.3 mmol/L (3.5-5.1); Sodium 140 mmol/L (136-145); Total Protein 6.6 g/dL (5.7-8.2)
[2024-04-19] MEDS: PANTOPRAZOLE 40 MG/10 ML VIAL INJ IV SCH (08:59)
[2024-04-19] MEDS: cefTRIAXone 1GM/50ML D5W 50 ML IV SCH (08:59)
[2024-04-19] MEDS: AZITHROMYCIN 500MG/ 250ML 250 ML IV SCH (09:00)
[2024-04-19] MEDS ORDERED: ALBUAER3 IN (11:00)
[2024-04-19] MEDS ORDERED: FLUT100M IN (11:00)
== END 2024-04-19 14:00 | disposition home or self-care (01) | DRG 141 ==
LOC: ER 07:06 → EDBD 07:06 → OVERFLOW 11:05 → EAST 17:00
PROVIDERS: ADMIT Internal Medicine; ATTEND Internal Medicine
DX: J45.901 Unspecified asthma with (acute) exacerbation (principal); D72.829 Elevated white blood cell count, unspecified; F10.10 Alcohol abuse, uncomplicated; F12.10 Cannabis abuse, uncomplicated; Z20.822 Contact with and (suspected) exposure to COVID-19; N18.30 Chronic kidney disease, stage 3 unspecified; F17.210 Nicotine dependence, cigarettes, uncomplicated; Z59.00 Homelessness unspecified; Z79.899 Other long term (current) drug therapy; Y90.9 Presence of alcohol in blood, level not specified
CPT/HCPCS: 36415; 71045; 80048; 80053; 82306; 82607; 83036; 83880; 84484; 85025; 87426; 87804; 94640; 96365; 96366; 96367; 96375; 99291; G0378; J2470

== ENCOUNTER 2024-05-11 19:01 | Emergency (ER) | payer MEDICAID ==
[~2024-05-11] VITALS: Ht 165.1 cm; Wt 79.5 kg
[~2024-05-11 19:01] MED LIST changes: -ALBU108A5 IN; -AZIT500T PO; +FLUT100M IN; -LEVO500T91 PO; -PRED20TA2 PO
[2024-05-11] MEDS: NALOXONE HCL 1MG/ML 2ML SYRINGE IV ONE (19:15)
[2024-05-11 19:20] VITALS: PULSE 96; RESP 15; TEMP 98.5; O2SAT 94
[2024-05-11] MEDS: SODIUM CHLORIDE 0.9% 1,000 ML IV ONE ×2 (19:46→21:11)
[2024-05-11 19:50] LABS: Basophils # (auto) 0 10 ^3/uL (0-0.2); Basophils % (auto) 0.7 % (0.0-2.0); Eosinophils # (auto) 0.5 10 ^3/uL (0-0.8); Eosinophils % (auto) 9.9 % (0.0-7.0); Hemoglobin 17.6 g/dL (13.5-17.5); Lymphocytes # (auto) 2.7 10 ^3/uL (0.4-5.4); Mean Corpuscular Hemoglobin 31.4 pg (28.0-32.0); Mean Corpuscular Hgb Conc. 33.2 g/dL (32.0-36.0); Mean Corpuscular Volume 94.6 fL (80.0-100.0); Monocytes # (auto) 0.4 10 ^3/uL (0-1.3); Monocytes % (auto) 6.8 % (0.0-12.0); Neutrophils # (auto) 1.7 10 ^3/uL (1.6-8.6); Neutrophils % (auto) 31.6 % (37.0-80.0); Nucleated Red Blood Cells % 0.1 %; Platelet Count (auto) 331 10^3/uL (140-450); Red Cell Distribution Width 14.2 % (11.8-14.3); White Blood Cell 5.3 10^3/uL (4.4-10.8)
[2024-05-11 20:01] LABS: Urine Bacteria MOD /hpf (None Seen); Urine Blood Negative /uL (Negative); Urine Clarity Turbid (Clear); Urine Color Yellow (Yellow); Urine Mucus FEW (None Seen); Urine Protein, UAD 1+ (Negative); Urine Specific Gravity 1.012 (1.001-1.035); Urine Sperm PRESENT /hpf (None Seen); Urine Urobilinogen Normal (Negative); Urine WBC 4 /hpf (0 - 3); Urine pH 5.5 (5.0-9.0)
[2024-05-11 20:07] LABS: Amphetamine Screen, Urine Pos (NEGATIVE); Barbiturate Scree,Urine Neg (NEGATIVE); Benzodiazephine Screen, Urine Neg (NEGATIVE); Cannabinoid Screen, Urine Pos (NEGATIVE); Cocaine Screen, Urine Neg (NEGATIVE); Opiate Scree,Urine Neg (NEGATIVE); Phencyclidine Screen, Urine Neg (NEGATIVE)
[2024-05-11] MEDS: ONDANSETRON HCL 4 MG/2 ML VIAL IV ONE (20:07)
[2024-05-11 20:08] LABS: Alanine Aminotransferase 41 U/L (7-40); Albumin 4.4 g/dL (3.2-4.8); Alkaline Phosphatase 119 U/L (46-116); Anion Gap 11 (5-15); Aspartate Aminotransferase 42 U/L (13-40); BUN/Creatinine Ratio 6.9 (10.0-20.0); Blood Urea Nitrogen 7 mg/dL (9-23); Calcium 9.4 mg/dL (8.7-10.4); Carbon Dioxide 22 mmol/L (20-31); Chloride 108 mmol/L (98-107); Creatine Kinase IFCC 248 U/L (46-171); Glucose 151 mg/dL (74-106); Magnesium 2.4 mg/dL (1.6-2.6); Potassium 3.4 mmol/L (3.5-5.1); Sodium 141 mmol/L (136-145)
[2024-05-11 20:09] LABS: Bilirubin, Total 0.6 mg/dL (0.2-1.0); Total Protein 7.5 g/dL (5.7-8.2)
[2024-05-11 20:25] LABS: Lactic Acid w/Reflex 3.6 mmol/L (0.4-2.0)
[2024-05-12 00:11] VITALS: BP 123/77
[2024-05-12 00:56] VITALS: PULSE 75; RESP 20; O2SAT 94
[2024-05-12] MEDS ORDERED: NITR-87 PO (01:04)
[2024-05-12] MEDS ORDERED: ALBU108A5 IN (02:09)
[2024-05-12] MEDS ORDERED: methylPREDNISolone SOD SUCC 125 MG/2 ML VL IV ONE (02:15)
[2024-05-12] MEDS ORDERED: ALBUTEROL SULF 2.5 MG/0.5ML(0.5%) NEB SOLN NEB ONE (02:15)
[2024-05-12] MEDS ORDERED: IPRATROPIUM BROM 0.5 MG/2.5ML INH SOL NEB ONE (02:15)
== END 2024-05-12 01:59 | disposition home or self-care (01) ==
LOC: EDBD 19:01 → ER 19:01
DX: T40.411A Poisoning by fentanyl or fentanyl analogs, accidental (unintentional), initial encounter (principal); T43.651A Poisoning by methamphetamines accidental (unintentional), initial encounter; F17.210 Nicotine dependence, cigarettes, uncomplicated; J45.909 Unspecified asthma, uncomplicated; N39.0 Urinary tract infection, site not specified; F19.10 Other psychoactive substance abuse, uncomplicated; F12.10 Cannabis abuse, uncomplicated; F15.10 Other stimulant abuse, uncomplicated; I50.9 Heart failure, unspecified; Z59.00 Homelessness unspecified; Z79.51 Long term (current) use of inhaled steroids; Z79.899 Other long term (current) drug therapy
CPT/HCPCS: 36415; 71045; 80053; 80307; 81001; 82550; 82962; 83605; 83735; 83880; 84484; 85025; 93005; 96361; 96374; 99285; J2405; J7030

== ENCOUNTER 2024-09-12 06:53 | Inpatient (IN) | payer MEDICAID ==
[~2024-09-12] VITALS: Ht 172.7 cm; Wt 57.0 kg
[2024-09-12] VITALS (7 sets, daily range): BP systolic 107–124; BP diastolic 69–75; PULSE 82–101; RESP 16–18; TEMP 97.5–100.5; O2SAT 94–100
[~2024-09-12 06:53] MED LIST changes: +ALBU108A5 IN; +NITR-87 PO
--- NOTE | 2024-09-12 07:39 | ED.PDOC ---
HPI Comments 59 year old male brought in by EMS presents to the ED with a chief complaint of chest pain onset today (09/12/24). Patient states he woke up today around 02:00 experiencing RT sided chest pain, sharp intermittent pain. Patient sates pain does not radiate. PMHx CHF, asthma. Denies shortness of breath, headache, dizziness, blurry vision, cough, congestion, headache, nausea, vomiting, diarrhea, anbdominal pain, fever, chills. No other symptoms or modifying factors present at this time. Chief Complaint: Chest Pain Time Seen by MD: 07:27 Primary Care Provider: NONE Reviewed Notes: Medications, Allergies Allergies: Coded Allergies: NO KNOWN ALLERGIES (Unverified , 10/31/18) Home Meds Active Scripts Albuterol Sulfate (Albuterol Sulfate Hfa) 108 Mcg/Act Aer, 108 MCG IN Q6HPRN PRN for 20 Days, #1 AER Prov:JEREMIE NORIEGA DO 05/12/24 Nitrofurantoin Monohydrate Mac (Macrobid) 100 Mg Cap, 100 MG PO BID for 7 Days, #14 CAP Prov:JEREMIE NORIEGA DO 05/12/24 Fluticasone-Salmeterol (Advair Diskus 100-50 Mcg/Dose) 1 Aer Aer, 1 AER IN BID for 30 Days, #1 AER 3 Refills Prov:MOMO SORIANO RESIDENT 04/19/24 Albuterol Sulfate (VENTOLIN MDI) 90 Mcg Ih, 90 MCG IN PRN for 30 Days, #1 INH Prov:MOMO SORIANO RESIDENT 04/19/24 Information Source: Patient, Emergency Med Personnel Mode of Arrival: EMS Severity: Moderate Timing: Hours Duration: Since onset Prehospital treatment: None Location: Chest (R) Radiation: No Radiation Quality: Sharp Onset: At Rest Cardiac Risk Factors: Smoker, Drugs PE Risk Factors: None History of: None Modifying Factors: Nothing Past Medical History PAST MEDICAL HISTORY: Asthma, CHF Surgical History: Denies all surgeries Family History Family History: Reviewed,noncontributory to illness Social History Smoker: Cigarettes, Less Than 1 Pack/Day Alcohol: Occasionally Drugs: Marijuana, Methamphetamine, Other Lives In: Homeless Constitutional: denies: chills, diaphoresis, fatigue, fever, malaise, sweats, weakness, others EENTM: denies: blurred vision, double vision, ear bleeding, ear discharge, ear drainage, ear pain, ear ringing, eye pain, eye redness, hearing loss, mouth pain, mouth swelling, nasal discharge, nose bleeding, nose congestion, nose pain, photophobia, tearing, throat pain, throat swelling, voice changes, others Respiratory: denies: cough, hemoptysis, orthopnea, SOB at rest, shortness of breath, SOB with excertion, stridor, wheezing, others Cardiovascular: reports: chest pain; denies: dizzy spells, diaphoresis, Dyspnea on exertion, edema, irregular heart beat, left arm pain, lightheadedness, palpitations, PND, syncope, others Gastrointestinal: denies: abdomen distended, abdominal pain, blood streaked bowels, constipated, diarrhea, dysphagia, difficulty swallowing, hematemesis, melena, nausea, poor appetite, poor fluid intake, rectal bleeding, rectal pain, vomiting, others Genitourinary: denies: burning, dysuria, flank pain, frequency, hematuria, incontinence, penile discharge, penile sore, pain, testicle pain, testicle swelling, urgency, others Neurological: denies: dizziness, fainting, headache, left sided numbness, left sided weakness, numbness, paresthesia, pre-existing deficit, right sided numbness, right sided weakness, seizure, speech problems, tingling, tremors, weakness, others Musculoskeletal: denies: back pain, gout, joint pain, joint swelling, muscle pain, muscle stiffness, neck pain, others Integumetry: denies: bruises, change in color, change in hair/nails, dryness, laceration, lesions, lumps, rash, wounds, others Allergic/Immunocompromised: denies: Difficulty Healing, Frequent Infections, Hives, Itching, others Hematologic/Lymphatic: denies: anemia, blood clots, easy bleeding, easy bruising, swollen glands, others Endocrine: denies: excessive hunger, excessive sweating, excessive thirst, excessive urination, flushing, intolerance to cold, intolerance to heat, unexplained weight gain, unexplained weight loss, others Psychiatric: denies: anxiety, bipolar disorder, depression, hopeless, panic disorder, schizophrenia, sleepless, suicidal, others All Other Systems: Reviewed and Negative Physical Exam General Appearance: No Apparent Distress, Normal HEENT: Normal ENT Inspection, Pharynx Normal, TMs Normal Neck: Full Range of Motion, Non-Tender, Normal, Normal Inspection Respiratory: Chest Non-Tender, Lungs Clear, No Accessory Muscle Use, No Respiratory Distress, Normal Breath Sounds Cardiovascular: No Edema, No JVD, No Murmur, No Gallop, Normal Peripheral Pulses, Regular Rate/Rhythm Breast Exam: Deferred Gastrointestinal: No Organomegaly, Non Tender, No Pulsatile Mass, Normal Bowel Sounds, Soft Genitalia: Deferred Pelvic: Deferred Rectal: Deferred Extremities: No calf tenderness, Normal capillary refill, Normal inspection, Normal range of motion, Non-tender, No pedal edema Musculoskeletal : Apperance: Normal Neurologic: Alert, emergency specialist II-XII nml as Tested, No Motor Deficits, Normal Affect, Normal Mood, No Sensory Deficits Cerebellar Function: Normal Reflexes: Normal Skin: Dry, Normal Color, Warm Lymphatic: No Adenopathy Was a procedure done? Was a procedure done?: No CP Differential Dx Differential Diagnosis: MAT, AK, PAC's, PVC's Differential Diagnosis: HTN Essential Differential Diagnosis: Gastritis, Myocardial Infarction, Pericarditis, Pneumonia X-Ray, Labs, Meds, VS Vital Signs Date Time Temp Pulse Resp B/P (MAP) Pulse Ox O2 Delivery O2 Flow Rate FiO2 09/12/24 09:46 108 18 125/74 (91) 95 09/12/24 07:54 106 09/12/24 07:32 98.9 95 17 120/75 (90) 98 98.9 09/12/24 07:31 Room Air* 0 21 09/12/24 06:59 98.8 102 18 123/72 (89) 95 09/12/24 06:55 97 Lab Test 09/12/24 08:27 09/12/24 07:26 Range/Units Troponin I High Sensitivity < 3 L < 3 L </=54 ng/L White Blood Count 18.4 H 4.4-10.8 10^3/uL Red Blood Count 4.96 4.5-5.90 10^6/uL Hemoglobin 15.7 13.5-17.5 g/dL Hematocrit 46.7 41.0-53.0 % Mean Corpuscular Volume 94.2 80.0-100.0 fL Mean Corpuscular Hemoglobin 31.7 28.0-32.0 pg Mean Corpuscular Hemoglobin Concent 33.6 32.0-36.0 g/dL Red Cell Distribution Width 13.4 11.8-14.3 % Platelet Count 314 140-450 10^3/uL Mean Platelet Volume 6.7 L 6.9-10.8 fL Neutrophils (%) (Auto) 85.4 H 37.0-80.0 % Lymphocytes (%) (Auto) 7.5 L 10.0-50.0 % Monocytes (%) (Auto) 6.2 0.0-12.0 % Eosinophils (%) (Auto) 0.4 0.0-7.0 % Basophils (%) (Auto) 0.5 0.0-2.0 % Neutrophils # (Auto) 15.7 H 1.6-8.6 10 ^3/uL Lymphocytes # (Auto) 1.4 0.4-5.4 10 ^3/uL Monocytes # (Auto) 1.1 0-1.3 10 ^3/uL Eosinophils # (Auto) 0.1 0-0.8 10 ^3/uL Basophils # (Auto) 0.1 0-0.2 10 ^3/uL Nucleated Red Blood Cells 0.1 % Sodium Level 134 L 136-145 mmol/L Potassium Level 4.4 3.5-5.1 mmol/L Chloride Level 101 98-107 mmol/L Carbon Dioxide Level 25 20-31 mmol/L Anion Gap 8 5-15 Blood Urea Nitrogen 12 9-23 mg/dL Creatinine 0.85 0.700-1.30 mg/dL Glomerular Filtration Rate Calc 101 >90 mL/min BUN/Creatinine Ratio 14.1 10.0-20.0 Serum Glucose 110 H 74-106 mg/dL Calcium Level 9.7 8.7-10.4 mg/dL . [place] [id number] Ph: [phone] DIAGNOSTIC IMAGING Diagnostic Imaging Report : [id number] Signed PATIENT: RADHAMES CRANDALL ACCT: [id number] UNIT: [id number] : 1965 LOC: ER ROOM / BED: / AGE / SEX: 59 / M ADM STATUS: REG ER SERVICE 0712 ORDERING PHYSICIAN: LAVINIA FINCH MD PROCEDURE(s): CXRP - CHEST PORTABLE REASON: chest pain ORDER NUMBER(s): [id number], ACCESSION NUMBER(s): [id number] CLINICAL INFORMATION: 59 years old, Male; chest pain. TECHNIQUE: Single AP portable chest radiograph was obtained. COMPARISON: XY CHEST PORTABLE on DOS: 05/11/24, XY CHEST PORTABLE on DOS: , XY CHEST PORTABLE on DOS: 06/11/23 FINDINGS: Lungs: Focal consolidation in the right upper lobe. Left lung is clear. No pn eumothorax or pleural effusion. Cardiac: Heart size is within normal limits. Pulmonary vasculature: Unremarkable. Mediastinum/trisha: Moderate atherosclerotic calcification of the aortic arch. Bones: No acute osseous abnormality identified. Other: No other significant findings. IMPRESSION: Focal consolidation in the right upper lobe. Likely pneumonia in the appropriate clinical setting. Correlate with clinical findings. ATED BY: BENJAMIN MEDEL DO DICTATED DATE/TIME: 09/12/24750 SIGNED BY: BENJAMIN MEDEL DO SIGNED DATE/TIME: 09/12/24750 CC: Time of 1ST Reevaluation: 07:57 Reevaluation 1ST: Unchanged Patient Education/Counseling: Diagnosis, Treatment, Prognosis Family Education/Counseling: No Family Present Additional Information The following tests were ordered, and results were reviewed by me: EKG -x3, BMP, CBC, TROP -x3, XY CHEST, UA Additional Information was gathered from interviewing the following independent historians: EMS I reviewed and agreed with the following test results read by other providers: JEB CHEST I discussed treatment and results with medical personnel and: patient Departure 1 Departure Time of Disposition: 10:12 (Patient presented with acute shortness of breath concerning for acute on chronic COPD Exacerbation, Pneumonia, ACS, CHF, Pneumothorax. Less likely PE, Dissection. Patient does not appear septic at this time.Data: 1. I ordered and reviewed the result of at least 3 labs including a CBC, BMP, and Troponin. 2. I independently interpreted the following tests: Chest X-ray shows a pneumonia.Risk:This patient has a high risk of morbidity due to further diagnostic testing or treatment and may suffer from respiratory or cardiac etiology . Workup reveals a pneumonia, patient will be started on antibiotics, admitted for further workup and possible expert consultation.) Impression: Primary Impression: Right upper lobe pneumonia Qualified Codes: J18.9 - Pneumonia, unspecified organism Additional Impression: Generalized weakness Disposition: ADMITTED INPATIENT Admit to: Med Surg Condition: Serious Critical Care Note Critical Care Time?: No Stability Stability form required: No Heart Score Heart Score: Heart Score Response (Comments) Value History Slightly Suspicious 0 EKG Normal 0 Age 45-64 1 Risk Factors 1 or 2 risk factors 1 Troponin 1-2 x's Normal limit 1 Total 3 I personally scribed for LAVINIA FINCH MD ([email or web address]) on 09/12/24 at 07:39. Electronically submitted by Adriana Elizalde ([email or web address]). I personally scribed for LAVINIA FINCH MD ([email or web address]) on 09/12/24 at 07:45. Electronically submitted by Adriana Elizalde ([email or web address]). I personally scribed for LAVINIA FINCH MD ([email or web address]) on 09/12/24 at 07:57. Electronically submitted by Adriana Elizalde ([email or web address]). LAVINIA FINCH MD Sep 12, 2024 07:39
[2024-09-12 07:42] LABS: Basophils # (auto) 0.1 10 ^3/uL (0-0.2); Basophils % (auto) 0.5 % (0.0-2.0); Eosinophils # (auto) 0.1 10 ^3/uL (0-0.8); Eosinophils % (auto) 0.4 % (0.0-7.0); Hematocrit 46.7 % (41.0-53.0); Hemoglobin 15.7 g/dL (13.5-17.5); Lymphocytes # (auto) 1.4 10 ^3/uL (0.4-5.4); Lymphocytes % (auto) 7.5 % (10.0-50.0); Mean Corpuscular Hemoglobin 31.7 pg (28.0-32.0); Mean Corpuscular Hgb Conc. 33.6 g/dL (32.0-36.0); Mean Corpuscular Volume 94.2 fL (80.0-100.0); Monocytes # (auto) 1.1 10 ^3/uL (0-1.3); Monocytes % (auto) 6.2 % (0.0-12.0); Neutrophils # (auto) 15.7 10 ^3/uL (1.6-8.6); Neutrophils % (auto) 85.4 % (37.0-80.0); Nucleated Red Blood Cells % 0.1 %; Platelet Count (auto) 314 10^3/uL (140-450); Red Blood Cells 4.96 10^6/uL (4.5-5.90); Red Cell Distribution Width 13.4 % (11.8-14.3); White Blood Cell 18.4 10^3/uL (4.4-10.8)
--- NOTE | 2024-09-12 07:54 | DVH ---
CLINICAL INFORMATION: 59 years old, Male; chest pain. TECHNIQUE: Single AP portable chest radiograph was obtained. COMPARISON: XY CHEST PORTABLE on DOS: 05/11/24, XY CHEST PORTABLE on DOS: 04/18/24, XY CHEST PORTABLE on DOS: 06/11/23 FINDINGS: Lungs: Focal consolidation in the right upper lobe. Left lung is clear. No pneumothorax or pleural ef fusion. Cardiac: Heart size is within normal limits. Pulmonary vasculature: Unremarkable. Mediastinum/trisha: Moderate atherosclerotic calcification of the aortic arch. Bones: No acute osseous abnormality identified. Other: No other significant findings. IMPRESSION: Focal consolidation in the right upper lobe. Likely pneumonia in the appropriate clinical setting. Co rrelate with clinical findings.
--- NOTE | 2024-09-12 07:55 | ECG ---
[facility] Test Date: 2024-09-12 Test Time: 07:54:27 Pat Name: RADHAMES CRANDALL Department: ER Room: 0271 Gender: M Enterer: GP : 1965 Requested By: EMERGENCY EMERGENCY Order Number: [id number] Reading MD: Lance Weiss Measurements Intervals [place] Rate: 106 P: 81 WI: 139 QRS: 72 QRSD: 80 T: 87 QT: 315 QTc: 419 Interpretive Statements Sinus tachycardia Right atrial enlargement Borderline T wave abnormalities Electronically Signed On 09-16-2024 17:28:17 PST by Lance Weiss Please click the below link to view image of tracing.
[2024-09-12 08:07] LABS: Anion Gap 8 (5-15); Calcium 9.7 mg/dL (8.7-10.4); Carbon Dioxide 25 mmol/L (20-31); Chloride 101 mmol/L (98-107); Potassium 4.4 mmol/L (3.5-5.1)
[2024-09-12 08:11] LABS: BUN/Creatinine Ratio 14.1 (10.0-20.0); Blood Urea Nitrogen 12 mg/dL (9-23)
[2024-09-12 08:14] LABS: Glucose 110 mg/dL (74-106); Sodium 134 mmol/L (136-145)
--- NOTE | 2024-09-12 09:52 | ECG ---
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
[2024-09-12] MEDS: SODIUM CHLORIDE 0.9% 2,000 ML IV ONE (10:15)
--- NOTE | 2024-09-12 10:20 | ECG ---
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
[2024-09-12 10:45] LABS: Urine Bacteria None Seen /hpf (None Seen)
[2024-09-12] MEDS: AZITHROMYCIN 250 MG TAB PO ONE (10:58)
[2024-09-12 11:02] LABS: Urine Blood Negative /uL (Negative); Urine Clarity Turbid (Clear); Urine Color Light-Orange (Yellow); Urine Mucus FEW (None Seen); Urine Protein, UAD 1+ (Negative); Urine Sperm PRESENT /hpf (None Seen); Urine Squamous Epithelial Cell None Seen /hpf (<5); Urine Urobilinogen 4 mg/dL (Negative); Urine WBC 2 /HPF (0-3)
[2024-09-12] MEDS ORDERED: HYDROcodone-ACET 5/325MG TAB PO PRN (11:15)
[2024-09-12] MEDS ORDERED: ONDANSETRON HCL 4 MG/2 ML VIAL IV PRN (11:15)
[2024-09-12] MEDS ORDERED: DOCUSATE SOD 100 MG CAP PO PRN (11:15)
[2024-09-12] MEDS: CEFEPIME 2GM/50ML NS 50 ML IV ONE (11:30)
[2024-09-12] MEDS: VANCOMYCIN 1GM/250ML KIT 250 ML IV ONE (11:32)
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
[2024-09-12] MEDS: ALBUTEROL SULF 2.5 MG/0.5ML(0.5%) NEB SOLN NEB SCH (12:00)
[2024-09-12] MEDS: IPRATROPIUM BROM 0.5 MG/2.5ML INH SOL NEB SCH (12:00)
[2024-09-12] MEDS ORDERED: VANCOMYCIN 1GM/250ML KIT 200 ML IV ONE (12:15)
[2024-09-12] MEDS: SODIUM CHLOR 0.9% PF (SALINE LOCK) 10ML VIAL/SYR IV SCH (14:38)
[2024-09-12] MEDS: ACETAMINOPHEN 325 MG TAB PO PRN (18:11)
[2024-09-12] MEDS: methylPREDNISolone SOD SUCC 40 MG/ML VL IV SCH (21:21)
[2024-09-12 21:50] LABS: Cannabinoid Screen, Urine Pos (NEGATIVE)
[2024-09-12 21:51] LABS: Amphetamine Screen, Urine Pos (NEGATIVE); Barbiturate Scree,Urine Neg (NEGATIVE); Benzodiazephine Screen, Urine Neg (NEGATIVE); Cocaine Screen, Urine Neg (NEGATIVE); Opiate Scree,Urine Neg (NEGATIVE); Phencyclidine Screen, Urine Neg (NEGATIVE)
[2024-09-13] VITALS (14 sets, daily range): BP systolic 102–121; BP diastolic 48–68; PULSE 72–99; RESP 14–19; TEMP 97.7–98.7; O2SAT 95–100
[2024-09-13 07:26] LABS: Basophils # (auto) 0 10 ^3/uL (0-0.2); Eosinophils # (auto) 0 10 ^3/uL (0-0.8); Hematocrit 47.6 % (41.0-53.0); Hemoglobin 15.8 g/dL (13.5-17.5); Lymphocytes % (auto) 5.6 % (10.0-50.0); Mean Corpuscular Hemoglobin 31.6 pg (28.0-32.0); Mean Corpuscular Hgb Conc. 33.2 g/dL (32.0-36.0); Mean Corpuscular Volume 95.2 fL (80.0-100.0); Monocytes # (auto) 0.5 10 ^3/uL (0-1.3); Monocytes % (auto) 2.6 % (0.0-12.0); Neutrophils # (auto) 16.8 10 ^3/uL (1.6-8.6); Neutrophils % (auto) 91.8 % (37.0-80.0); Platelet Count (auto) 306 10^3/uL (140-450); Red Cell Distribution Width 13.3 % (11.8-14.3); White Blood Cell 18.3 10^3/uL (4.4-10.8)
[2024-09-13 07:29] LABS: Alanine Aminotransferase 20 U/L (7-40); Albumin 4.3 g/dL (3.2-4.8); Alkaline Phosphatase 106 U/L (46-116); Anion Gap 8 (5-15); Aspartate Aminotransferase 14 U/L (13-40); BUN/Creatinine Ratio 11.4 (10.0-20.0); Blood Urea Nitrogen 9 mg/dL (9-23); Calcium 9.7 mg/dL (8.7-10.4); Carbon Dioxide 24 mmol/L (20-31); Chloride 105 mmol/L (98-107); Potassium 4.7 mmol/L (3.5-5.1); Sodium 137 mmol/L (136-145)
[2024-09-13 07:30] LABS: Bilirubin, Total 0.7 mg/dL (0.2-1.0); Total Protein 7.1 g/dL (5.7-8.2)
[2024-09-13 07:37] LABS: Glucose 134 mg/dL (74-106)
[2024-09-13] MEDS: cefTRIAXone 1GM/50ML D5W 50 ML IV SCH (09:26)
[2024-09-13] MEDS: AZITHROMYCIN 500MG/ 250ML 250 ML IV SCH (12:18)
--- NOTE | 2024-09-13 18:41 | DVHPN2 ---
Subjective feels well in bed with no SOB Changes from previous H/P or p: No Changes Eyes: No Pain, No Vision change, No Conjunctivae inflammation, No Eyelid inflammation, No Other, No Redness ENT: No Ear pain, No Ear discharge, No Nose pain, No Nose discharge, No Nose congestion, No Mouth pain, No Mouth swelling, No Throat pain, No Throat swelling, No Other Cardiovascular: No Chest Pain, No Palpitations, No Orthopnea, No Paroxysmal Noc. Dyspnea, No Edema, No Lt Headedness, No Other Respiratory: No Cough, No Dry, No Shortness of breath, No SOB with excertion; W heezing; No Hemoptysis; Pleuritic Pain (right chest, worse with breathing); No Sputum, No Other Gastrointestinal: No Nausea, No Vomiting, No Abdominal Pain, No Diarrhea, No Constipation, No Melena, No Hematochezia, No Other Genitourinary: No Dysuria, No Frequency, No Incontinence, No Hematuria, No Retention, No Other Musculoskeletal: No other, No neck pain, No shoulder pain, No arm pain, No back pain, No hand pain, No leg pain, No foot pain Skin: No Rash, No Lesions, No Jaundice, No Bruising, No Other Objective Vitals Vital Signs Date Time Temp Pulse Resp B/P (MAP) Pulse Ox O2 Delivery O2 Flow Rate FiO2 09/13/24 18:37 85 14 100 09/13/24 18:31 Room Air 0.0 09/13/24 18:31 21 09/13/24 16:36 98.7 115/68 (84) 98.7 Intake/Output Intake and Output 09/13/24 07:00 Intake Total 2000 ml Balance 2000 ml Intake Oral 0 ml IV Total 2000 ml # Voids 1 General Appearance: Alert, Oriented X3 HEENT: Atraumatic Cardiovascular: Regular rate Medications Current Medications Medications Dose Ordered Sig/Shivani Route Start Time Stop Time Status Last Admin Dose Admin Sodium Chloride 10 ml Q8HR IV 09/12/24 14:00 09/13/24 14:49 10 ML Acetaminophen/ Hydrocodone Bitart 1 tab Q4HP PRN PO 09/12/24 11:15 Ondansetron HCl 4 mg Q4HP PRN IV 09/12/24 11:15 Docusate Sodium 100 mg BIDPRN PRN PO 09/12/24 11:15 Acetaminophen 650 mg Q6HP PRN PO 09/12/24 11:15 09/12/24 18:11 650 MG Azithromycin 250 ml @ 125 mls/hr DAILY IV 09/13/24 10:00 09/13/24 12:18 125 MLS/HR Ceftriaxone Sodium 50 ml @ 100 mls/hr DAILY@09 IV 09/13/24 09:00 09/13/24 09:26 100 MLS/HR Methylprednisolone Sodium Succinate 40 mg BID IV 09/12/24 22:00 09/13/24 09:21 40 MG Ipratropium [place] 0.5 mg Q6HWA NEB 09/12/24 12:00 09/13/24 18:31 0.5 MG Albuterol 2.5 mg Q6HWA NEB 09/12/24 12:00 09/13/24 18:31 2.5 MG Laboratory Results Laboratory Tests 09/13/24 05:38 Chemistry Test 09/13/24 05:38 Albumin 4.3 g/dL (3.2-4.8) Calcium Level 9.7 mg/dL (8.7-10.4) Total Protein 7.1 g/dL (5.7-8.2) LFT Test 09/13/24 05:38 Alanine Aminotransferase (ALT) 20 U/L (7-40) Alkaline Phosphatase 106 U/L (46-116) Aspartate Amino Transferase (AST) 14 U/L (13-40) Total Bilirubin 0.7 mg/dL (0.2-1.0) Urinalysis Test 09/12/24 08:10 Urine Color Light-orange (Yellow) Urine Clarity Turbid (Clear) H Urine pH 6.0 (5.0-9.0) Urine Specific [place] 1.030 (1.001-1.035) Urine Protein 1+ (Negative) H Urine Ketones 1+ (Negative) H Urine Blood Negative /uL (Negative) Urine Nitrite Negative (Negative) Urine Bilirubin Negative (Negative) Urine Urobilinogen 4 mg/dL (Negative) H Urine Leukocyte Esterase Negative /uL (Negative) Urine RBC 6 /hpf (0 - 3) Urine Microscopic WBC 2 /HPF (0-3) Urine Squamous Epithelial Cells None seen /hpf (<5) Urine Bacteria None seen /hpf (None Seen) Urine Mucus Few (None Seen) Urine Sperm Present /hpf (None Seen) Urine Glucose Normal mg/dL (Normal) Microbiology Microbiology Date/Time Source Procedure Growth Status 09/12/24 10:22 Blood Blood Culture - Preliminary NO GROWTH AFTER 24 HOURS OF INCUBATION. Resulted Assessment/Plan Assessment/Plan Right upper lobe pneumonia, Continue IV abx, wean off oxygen Chronic heart failure Asthma, Polysubstance abuse, Plan discussed with: Patient Date of Service: Sep 13, 2024 Billing Provider: MISA STONE MD Common Visit Codes: [id number] INP/OBS CARE(HIGH) MISA STONE MD Sep 13, 2024 18:41
[2024-09-14] VITALS (11 sets, daily range): BP systolic 107–133; BP diastolic 51–73; PULSE 58–92; RESP 16–20; TEMP 36.7; O2SAT 95–100
[2024-09-14] MEDS ORDERED: AUG875T PO (07:47)
== END 2024-09-14 15:36 | disposition home or self-care (01) | DRG 720 ==
LOC: EDBD 06:53 → ER 06:53 → OVERFLOW 11:10 → WEST WING 23:18
PROVIDERS: ADMIT Hospitalist; ATTEND Hospitalist
DX: A41.9 Sepsis, unspecified organism (principal); J15.69 Pneumonia due to other Gram-negative bacteria; I50.9 Heart failure, unspecified; F12.10 Cannabis abuse, uncomplicated; F17.210 Nicotine dependence, cigarettes, uncomplicated; F15.10 Other stimulant abuse, uncomplicated; J45.909 Unspecified asthma, uncomplicated; Z79.899 Other long term (current) drug therapy; Z59.00 Homelessness unspecified
CPT/HCPCS: 36415; 71045; 80048; 80053; 80307; 81001; 83605; 84484; 85025; 87040; 93005; 94640; 96360; G0378; J0692

== ENCOUNTER 2024-09-18 17:03 | Inpatient (IN) | payer MEDICAID ==
[~2024-09-18] VITALS: Ht 172.7 cm; Wt 59.0 kg
[~2024-09-18 17:03] MED LIST changes: +AUG875T PO; -NITR-87 PO
--- NOTE | 2024-09-18 17:28 | ECG ---
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
--- NOTE | 2024-09-18 17:56 | DVH ---
CHEST RADIOGRAPH Indication: sob Technique: Single frontal view of the chest was obtained COMPARISON: XY CHEST PORTABLE on DOS: 09/12/24, XY CHEST PORTABLE on DOS: 05/11/24, XY CHEST PORTABLE on DOS: 04/18/24, XY CHEST PORTABLE on DOS: 06/11/23, CHEST PORTABLE on DOS: 07/25/20 FINDINGS: Lines and Tubes: None Lungs: Clear Pleura: No effusion. No pneumothorax. Cardiomediastinal contours: Unremarkable Bones: Unremarkable IMPRESSION: 1. No acute disease.
[2024-09-18 18:03] VITALS: RESP 18; O2SAT 97
[2024-09-18 18:24] LABS: Urine Bacteria None Seen /hpf (None Seen)
[2024-09-18 18:28] LABS: Basophils # (auto) 0.1 10 ^3/uL (0-0.2); Basophils % (auto) 0.9 % (0.0-2.0); Eosinophils # (auto) 0.5 10 ^3/uL (0-0.8); Hematocrit 40.7 % (41.0-53.0); Hemoglobin 14.7 g/dL (13.5-17.5); Lymphocytes # (auto) 1.7 10 ^3/uL (0.4-5.4); Lymphocytes % (auto) 19.8 % (10.0-50.0); Mean Corpuscular Hemoglobin 33.8 pg (28.0-32.0); Mean Corpuscular Hgb Conc. 36.2 g/dL (32.0-36.0); Mean Corpuscular Volume 93.6 fL (80.0-100.0); Monocytes # (auto) 0.9 10 ^3/uL (0-1.3); Monocytes % (auto) 9.8 % (0.0-12.0); Neutrophils # (auto) 5.5 10 ^3/uL (1.6-8.6); Neutrophils % (auto) 63.5 % (37.0-80.0); Nucleated Red Blood Cells % 0.1 %; Platelet Count (auto) 353 10^3/uL (140-450); Red Blood Cells 4.35 10^6/uL (4.5-5.90); White Blood Cell 8.7 10^3/uL (4.4-10.8)
[2024-09-18 18:39] LABS: Alanine Aminotransferase 34 U/L (7-40); Albumin 4.1 g/dL (3.2-4.8); Alkaline Phosphatase 86 U/L (46-116); Anion Gap 8 (5-15); BUN/Creatinine Ratio 6.7 (10.0-20.0); Bilirubin, Total 0.4 mg/dL (0.2-1.0); Calcium 8.8 mg/dL (8.7-10.4); Carbon Dioxide 28 mmol/L (20-31); Glucose 104 mg/dL (74-106); Potassium 3.5 mmol/L (3.5-5.1)
[2024-09-18 18:39] LABS: Urine Blood Negative /uL (Negative); Urine Clarity Clear (Clear); Urine Color Light-Yellow (Yellow); Urine Mucus FEW (None Seen); Urine Protein, UAD Negative (Negative); Urine Specific Gravity 1.012 (1.001-1.035); Urine Squamous Epithelial Cell None Seen /hpf (<5); Urine Urobilinogen 3 mg/dL (Negative); Urine WBC 1 /HPF (0-3)
[2024-09-18 18:43] LABS: Aspartate Aminotransferase 11 U/L (13-40); Blood Urea Nitrogen 6 mg/dL (9-23); Chloride 97 mmol/L (98-107); Sodium 133 mmol/L (136-145)
--- NOTE | 2024-09-18 20:28 | ED.PDOC ---
SOB-HPI HPI Comments HPI: Poor Historian. 59 y.o male presents to the ED VIA EMS for a chief complaint of SOB associated with a productive cough, nasal drip and generalized head pressure. Patient was seen here 4 days ago for complaint, was admitted with a Right upper lobe pneumonia diagnose for 2 days and discharged with antibiotics and an inhaler prescription. 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 Patient is currently homeless. No other symptoms or pain reported. EMS reported patient was saturating at 88% on room air, gave one breathing treatment and it increased to 97%. Initial Vital Signs: Temp : 102.9 F BP: 126/71 HR: 103 RR: 24 SpO2: 97% RA s/p breathing treatment Past Medical History: Hepatitis C, COPD, CHF, Methamphetamine abuse. Homelessness Past Surgical History: Denies Allergies: Denies REVIEW OF SYSTEMS: CONSTITUTIONAL: Denies acute: fever, diaphoresis, chills, generalized weakness. HEAD: Denies acute: , photophobia Eyes: Denies acute: Double vision, vision loss, eye pain, eye discharge. EARS: Denies acute: tinnitus, hearing loss, ear discharge, ear pain, THROAT: Denies acute: sore throat, swelling, difficulty swallowing , pain with swallow ing, change in voice. NECK: Denies acute: neck pain, neck swelling, stiff neck. HEART: Denies acute : chest pain, palpitations, LUNGS: Denies acute: , wheezing, , hemoptysis ABDOMEN: Denies acute: abdominal pain, Nausea, Vomiting, diarrhea, melena , hematemesis, hematochezia SKIN: Denies acute: rash, redness, lesions, itchiness. EXTREMITIES: Denies acute: calf pain, numbness, tingling, weakness, denies pain in extremity. Denies acute: Low back pain. Neuro: Denies acute: focal neurological deficit, motor or sensory focal neurological deficit, tremors, seizure like activity, confusion, dizziness, change in mental status, loss of bowel or bladder function, cauda equina like symptoms. : Denies acute: dysuria, hematuria, flank pain, increase in urinary frequency. PSYCH: Denies acute: hallucination, suicidal ideation, homicidal ideation. PHYSICAL EXAM: General: no acute distress, awake and alert. Head: normocephalic, atraumatic. Neck: supple, trachea is midline, no swelling. Throat: Normal phonation. Eyes:, no erythema, no purulent discharge, no proptosis, no icterus. Heart: regular rate, regular rhythm, no significant murmur appreciated. Lungs: no apparent respiratory distress, Able to speak in full sentences. No wheezing, no rhonchi, no crackles. No stridors Clear to auscultation bilaterally. Abdomen: non tender to palpation, non distended, soft, no guarding, no rebound, + bowel sounds. Neuro: Awake, Alert, oriented to name, self, situation, follows commands GCS=15. Speech is normal. Skin: no petechia, no purpura, no cyanosis, non-pale, not jaundice. Lower extremities: --no - Pitting edema no deformity, no focal swelling, no calf TTP. Makes eye contact. moves all four extremities. Face: no apparent facial droop. Ambulating in the ED independently. ED COURSE: Chief Complaint: Shortness of Breath Time Seen by MD: 20:10 Primary Care Provider: NONE Reviewed notes: Nurses Notes, Efficiency Expert Notes, Allergies Information Source: Patient Mode of Arrival: EMS Severity: Moderate Past Medical History PAST MEDICAL HISTORY: Asthma Surgical History: Denies all surgeries Family History Family History: Reviewed,noncontributory to illness Social History Smoker: Cigarettes, Less Than 1 Pack/Day Alcohol: Occasionally Drugs: Marijuana, Methamphetamine, Other Lives In: Homeless Was a procedure done? Was a procedure done?: No Differential Dx Differential Diagnosis: Bronchitis, Pneumonia, Respiratory Distress, URI, Other (DDx include ACS, unstable angina, anxiety, PE, pneumothroax, neoplasm, cardiac ischemia, COPD, asthma, CHF, pleural effusion, tobacco abuse, pneumonia, hypoxia, hypercapnia, anemia., infection/sepsis., pulmonary edema. Asthma, Card iac tamponade, infection.) X-Ray, Labs, Meds, VS Vital Signs Date Time Temp Pulse Resp B/P (MAP) Pulse Ox O2 Delivery O2 Flow Rate FiO2 09/18/24 18:03 18 97 Room Air* 0 21 09/18/24 17:16 102.9 103 24 126/71 (89) 97 09/18/24 17:11 104 Lab Test 09/18/24 20:39 09/18/24 20:31 09/18/24 19:45 09/18/24 18:24 Range/Units Influenza Type A Antigen Pending Influenza Type B Antigen Pending SARS-CoV-2 Antigen (Rapid) Pending Blood Gas Specimen Type Arterial Blood Gas Sample Site Right radial Blood Gas Patient Temperature 37.0 Arterial Blood Date Drawn [id number] Arterial Blood pH 7.497 H 7.350-7.450 Arterial Blood Partial Pressure CO2 31.3 L 35.0-48.0 mmHg Arterial Blood Partial Pressure O2 62.3 L 83.0-108.0 mmHg Arterial Blood HCO3 23.7 21.0-28.0 mmol/L Arterial Blood Oxygen Saturation 92.3 L 94.0-98.0 % Arterial Blood Base Excess 1.4 -2.0-3.0 mmol/L Arterial Blood Oxyhemoglobin 91.4 L 94.0-98.0 % Arterial Blood Carboxyhemoglobin 0.5 0.5-1.5 % Arterial Blood Methemoglobin 0.5 0.0-1.5 % José Luis Test Yes Blood Gas Total Hemoglobin 15.10 13.5-17.5 g/dL Blood Gas Modality Room air FiO2 % 21.0 Troponin I High Sensitivity < 3 L </=54 ng/L Urine Color Light-yellow Yellow Urine Clarity Clear Clear Urine pH 6.0 5.0-9.0 Urine Specific [place] 1.012 1.001-1.035 Urine Protein Negative Negative Urine Ketones Negative Negative Urine Blood Negative Negative /uL Urine Nitrite Negative Negative Urine Bilirubin Negative Negative Urine Urobilinogen 3 H Negative mg/dL Urine Leukocyte Esterase 1+ Negative /uL Urine RBC <1 0 - 3 /hpf Urine Microscopic WBC 1 0-3 /HPF Urine Squamous Epithelial Cells None seen <5 /hpf Urine Bacteria None seen None Seen /hpf Urine Mucus Few None Seen Urine Glucose Normal Normal mg/dL Test 09/18/24 17:30 Range/Units White Blood Count 8.7 # 4.4-10.8 10^3/uL Red Blood Count 4.35 L 4.5-5.90 10^6/uL Hemoglobin 14.7 13.5-17.5 g/dL Hematocrit 40.7 #L 41.0-53.0 % Mean Corpuscular Volume 93.6 80.0-100.0 fL Mean Corpuscular Hemoglobin 33.8 H 28.0-32.0 pg Mean Corpuscular Hemoglobin Concent 36.2 H 32.0-36.0 g/dL Red Cell Distribution Width 13.0 11.8-14.3 % Platelet Count 353 140-450 10^3/uL Mean Platelet Volume 6.3 L 6.9-10.8 fL Neutrophils (%) (Auto) 63.5 37.0-80.0 % Lymphocytes (%) (Auto) 19.8 10.0-50.0 % Monocytes (%) (Auto) 9.8 0.0-12.0 % Eosinophils (%) (Auto) 6.0 0.0-7.0 % Basophils (%) (Auto) 0.9 0.0-2.0 % Neutrophils # (Auto) 5.5 1.6-8.6 10 ^3/uL Lymphocytes # (Auto) 1.7 0.4-5.4 10 ^3/uL Monocytes # (Auto) 0.9 0-1.3 10 ^3/uL Eosinophils # (Auto) 0.5 0-0.8 10 ^3/uL Basophils # (Auto) 0.1 0-0.2 10 ^3/uL Nucleated Red Blood Cells 0.1 % Sodium Level 133 L 136-145 mmol/L Potassium Level 3.5 3.5-5.1 mmol/L Chloride Level 97 L 98-107 mmol/L Carbon Dioxide Level 28 20-31 mmol/L Anion Gap 8 5-15 Blood Urea Nitrogen 6 L 9-23 mg/dL Creatinine 0.90 0.700-1.30 mg/dL Glomerular Filtration Rate Calc 99 >90 mL/min BUN/Creatinine Ratio 6.7 L 10.0-20.0 Serum Glucose 104 74-106 mg/dL Lactic Acid Level 1.4 0.4-2.0 mmol/L Calcium Level 8.8 8.7-10.4 mg/dL Total Bilirubin 0.4 0.2-1.0 mg/dL Aspartate Amino Transferase (AST) 11 L 13-40 U/L Alanine Aminotransferase (ALT) 34 7-40 U/L Alkaline Phosphatase 86 46-116 U/L Troponin I High Sensitivity < 3 L </=54 ng/L B-Type Natriuretic Peptide 15.57 0-100 pg/mL Total Protein 7.0 5.7-8.2 g/dL Albumin 4.1 3.2-4.8 g/dL [facility] [id number] [place] [address] Ph: [phone] DIAGNOSTIC IMAGING Diagnostic Imaging Report : [id number] Signed PATIENT: RADHAMES CRANDALL ACCT: [id number] UNIT: [id number] : 1965 LOC: ER ROOM / BED: / AGE / SEX: 59 / M ADM STATUS: REG ER SERVICE 14 ORDERING PHYSICIAN: JEREMIE NORIEGA DO PROCEDURE(s): CXRP - CHEST PORTABLE REASON: sob ORDER NUMBER(s): [id number], ACCESSION NUMBER(s): [id number] CHEST RADIOGRAPH Indication: sob Technique: Single frontal view of the chest was obtained COMPARISON: XY CHEST PORTABLE on DOS: 09/12/24, XY CHEST PORTABLE on DOS: 05/11/24, XY CHEST PORTABLE on DOS: 04/18/24, XY CHEST PORTABLE on DOS: 06/11/23, CHEST PORTABLE on DOS: 07/25/20 FINDINGS: Lines and Tubes: None Lungs: Clear Pleura: No effusion. No pneumothorax. Cardiomediastinal contours: Unremarkable Bones: Unremarkable IMPRESSION: 1. No acute disease. ATED BY: SHAW GRULLON MD DICTATED DATE/TIME: 09/18/241752 SIGNED BY: SHAW GRULLON MD SIGNED DATE/TIME: 09/18/241752 CC: Time of 1ST Reevaluation: 20:15 Reevaluation 1ST: Unchanged Patient Education/Counseling: Diagnosis, Treatment Family Education/Counseling: No Family Present Comments Patient presented with the above HPI.---respiratory---workup was initiated. patient was found with the above mentioned diagnosis. the following medications were ordered: please refer to order lists of meds and tests obtained by myself Dr. Noriega. Patient ED course and VS have been stabilized. Patient has been reassessed in the ED and remained in a stable condition. Pertinent incidental findings were discussed with the patient and/or family. Patient/family voices understanding and is agreeable with plan. Patient has been observed in the ED adequate length of time to insure improvement/stability. Escalation of care considered: Consideration of escalation to observation or admission Patient was ADMITTED to the medicine team for further evaluation and treatment of their presentation. All the reports of any imaging studies that were ordered by myself were reviewed by myself. Departure 1 Departure Time of Disposition: 20:29 Impression: Primary Impression: Fever in adult Additional Impressions: URI (upper respiratory infection) Qualified Codes: J06.9 - Acute upper respiratory infection, unspecified Hypoxemia Disposition: ADMITTED INPATIENT Admit to: [facility] Condition: Guarded Discharged With: Self Critical Care Note Critical Care Time?: Yes (35 min-critical care time only) I personally scribed for JEREMIE NORIEGA DO ([email or web address]) on 09/18/24 at 20:28. Electronically submitted by Benita Ambrocio ([facility]). JEREMIE NORIEGA DO Sep 18, 2024 20:28
[2024-09-18] MEDS ORDERED: IPRATROPIUM BROM 0.5 MG/2.5ML INH SOL NEB SCH (21:00)
[2024-09-18] MEDS ORDERED: ALBUTEROL SULF 2.5 MG/0.5ML(0.5%) NEB SOLN NEB ONE (21:00)
[2024-09-18 21:10] LABS: Base Excess 1.4 mmol/L (-2.0-3.0)
[2024-09-18] MEDS: ACETAMINOPHEN 325 MG TAB PO ONE (21:33)
[2024-09-18] MEDS: methylPREDNISolone SOD SUCC 40 MG/ML VL IV SCH (21:33)
[2024-09-18 21:35] LABS: COVID19 ANTIGEN SOFIA FIA NEGATIVE (NEGATIVE)
[2024-09-18] MEDS: KETOROLAC TROMETH 30 MG/ML 1ML VIAL IV ONE (21:35)
[2024-09-18] MEDS: SODIUM CHLORIDE 0.9% 1,000 ML IV ONE (21:35)
[2024-09-18 21:37] LABS: Rapid Influenza A Positive (Negative); Rapid Influenza B Negative (Negative)
[2024-09-18] MEDS: ACETAMINOPHEN 325 MG TAB PO SCH (21:37)
[2024-09-18 21:53] VITALS: BP 126/71; PULSE 103; RESP 18; TEMP 102.9; O2SAT 97
[2024-09-18 22:00] VITALS: PULSE 91; RESP 27; O2SAT 99
[2024-09-18] MEDS: cefTRIAXone 1GM/50ML D5W 50 ML IV SCH (22:10)
[2024-09-18] MEDS: ALBUTEROL SULF 2.5 MG/0.5ML(0.5%) NEB SOLN NEB PRN (22:12)
[2024-09-18] MEDS: IPRATROPIUM BROM 0.5 MG/2.5ML INH SOL NEB PRN (22:13)
[2024-09-18 22:23] VITALS: PULSE 92; RESP 20; O2SAT 97
[2024-09-18 22:31] VITALS: PULSE 86; RESP 20; O2SAT 99
[2024-09-19] VITALS (8 sets, daily range): BP systolic 146; BP diastolic 84; PULSE 72–96; RESP 16–26; TEMP 98.8; O2SAT 94–100
--- NOTE | 2024-09-19 00:42 | DVHHPRES ---
History of Present Illness Resident Creating Document: GISELL SANTIAGO RESIDENT Reason for Visit: acute respiratory failure History of Present Illness A 59-year-old male with a past medical history of asthma, heart failure?, possible chronic obstructive pulmonary disease (COPD), hepatitis C and methamphetamine use disorder presents to the emergency department with shortness of breath that began today. He also endorses a productive cough with greenish sputum, nasal drip, and generalized head pressure. The patient was evaluated in the ED four days ago for a similar complaint and was admitted for two days with a diagnosis of right upper lobe pneumonia. 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 His symptoms have remained constant since discharge. Upon arrival, EMS reported an oxygen saturation of 88% on room air, which improved to 97% after a breathing treatment. The patient is currently not requiring supplemental oxygen. Patient also arrived febrile and tachycardic Influenza testing returned positive for Influenza A Home meds: salmeterol + fluticasone Social History Smoker: Cigarettes, Less Than 1 Pack/Day Alcohol: Occasionally Drugs: Marijuana, Methamphetamine Lives In: Homeless Review of Systems Constitutional: Yes: Fever; No: Chills, Sweats, Weakness, Malaise, Other Eyes: No: Pain, Vision change, Conjunctivae inflammation, Eyelid inflammation, Other, Redness ENT: No: Ear pain, Ear discharge, Nose pain, Nose discharge, Nose congestion, Mouth pain, Mouth swelling, Throat pain, Throat swelling, Other Respiratory: Cough, Shortness of breath, Sputum, Wheezing; No: Dry, SOB with excertion, Wheezing, Hemoptysis, Pleuritic Pain, Other Cardiovascular: No: Chest Pain, Palpitations, Orthopnea, Paroxysmal Noc. Dyspnea, Edema, Lt Headedness, Other Gastrointestinal: No: Nausea, Vomiting, Abdominal Pain, Diarrhea, Constipation, Melena, Hematochezia, Other Genitourinary: No Dysuria, No Frequency, No Incontinence, No Hematuria, No Retention, No Other Musculoskeletal: No: other, neck pain, shoulder pain, arm pain, back pain, hand pain, leg pain, foot pain Skin: No: Rash, Lesions, Jaundice, Bruising, Other Neurological: No: Weakness, Numbness, Incoordination, Change in speech, Confusion, Seizures, Other Allergies: Coded Allergies: NO KNOWN ALLERGIES (Unverified , 10/31/18) Medications Current Medications Medications Dose Ordered Sig/Shivani Route Start Time Stop Time Status Last Admin Dose Admin Methylprednisolone Sodium Succinate 40 mg BID IV 09/18/24 21:00 09/18/24 21:33 40 MG Acetaminophen 325 mg Q8HR PO 09/18/24 22:00 Ipratropium [place] 0.5 mg Q8HPRN PRN NEB 09/18/24 22:00 09/18/24 22:13 0.5 MG Albuterol 2.5 mg Q8HPRN PRN NEB 09/18/24 22:00 09/18/24 22:12 2.5 MG Ceftriaxone Sodium 50 ml @ 100 mls/hr DAILY@09 IV 09/18/24 22:00 09/18/24 22:10 100 MLS/HR Azithromycin 250 ml @ 125 mls/hr DAILY IV 09/19/24 10:00 Oseltamivir Phosphate 75 mg Q12HR PO 09/19/24 00:45 09/24/24 00:44 UNV Exam Vital Signs Vital Signs Date Time Temp Pulse Resp B/P (MAP) Pulse Ox O2 Delivery O2 Flow Rate FiO2 09/19/24 00:00 71 09/19/24 00:00 26 121/64 (83) 95 09/18/24 23:00 99.3 99.3 09/18/24 22:23 Nasal Cannula* 2 28 Exam General: Appears uncomfortable No acute distress. HEENT: No conjunctival injection or discharge. Nasal mucosa congested. Cardiovascular: Tachycardic, regular rhythm, no murmurs. Respiratory: Tachypneic, no accessory muscle use, scattered rhonchi bilaterally and wheezing Abdomen: Soft, non-tender, non-distended. Neurologic: Alert and oriented x3, no focal deficits. Skin: No rashes or lesions. Labs/Xrays Labs Test 09/18/24 21:21 09/18/24 20:39 09/18/24 20:31 09/18/24 18:24 Range/Units Troponin I High Sensitivity < 3 L </=54 ng/L Influenza Type A Antigen Positive Negative Influenza Type B Antigen Negative Negative SARS-CoV-2 Antigen (Rapid) Negative NEGATIVE Blood Gas Specimen Type Arterial Blood Gas Sample Site Right radial Blood Gas Patient Temperature 37.0 Arterial Blood Date Drawn [id number] Arterial Blood pH 7.497 H 7.350-7.450 Arterial Blood Partial Pressure CO2 31.3 L 35.0-48.0 mmHg Arterial Blood Partial Pressure O2 62.3 L 83.0-108.0 mmHg Arterial Blood HCO3 23.7 21.0-28.0 mmol/L Arterial Blood Oxygen Saturation 92.3 L 94.0-98.0 % Arterial Blood Base Excess 1.4 -2.0-3.0 mmol/L Arterial Blood Oxyhemoglobin 91.4 L 94.0-98.0 % Arterial Blood Carboxyhemoglobin 0.5 0.5-1.5 % Arterial Blood Methemoglobin 0.5 0.0-1.5 % José Luis Test Yes Blood Gas Total Hemoglobin 15.10 13.5-17.5 g/dL Blood Gas Modality Room air FiO2 % 21.0 Urine Color Light-yellow Yellow Urine Clarity Clear Clear Urine pH 6.0 5.0-9.0 Urine Specific [place] 1.012 1.001-1.035 Urine Protein Negative Negative Urine Ketones Negative Negative Urine Blood Negative Negative /uL Urine Nitrite Negative Negative Urine Bilirubin Negative Negative Urine Urobilinogen 3 H Negative mg/dL Urine Leukocyte Esterase 1+ Negative /uL Urine RBC <1 0 - 3 /hpf Urine Microscopic WBC 1 0-3 /HPF Urine Squamous Epithelial Cells None seen <5 /hpf Urine Bacteria None seen None Seen /hpf Urine Mucus Few None Seen Urine Glucose Normal Normal mg/dL Test 09/18/24 17:30 Range/Units White Blood Count 8.7 # 4.4-10.8 10^3/uL Red Blood Count 4.35 L 4.5-5.90 10^6/uL Hemoglobin 14.7 13.5-17.5 g/dL Hematocrit 40.7 #L 41.0-53.0 % Mean Corpuscular Volume 93.6 80.0-100.0 fL Mean Corpuscular Hemoglobin 33.8 H 28.0-32.0 pg Mean Corpuscular Hemoglobin Concent 36.2 H 32.0-36.0 g/dL Red Cell Distribution Width 13.0 11.8-14.3 % Platelet Count 353 140-450 10^3/uL Mean Platelet Volume 6.3 L 6.9-10.8 fL Neutrophils (%) (Auto) 63.5 37.0-80.0 % Lymphocytes (%) (Auto) 19.8 10.0-50.0 % Monocytes (%) (Auto) 9.8 0.0-12.0 % Eosinophils (%) (Auto) 6.0 0.0-7.0 % Basophils (%) (Auto) 0.9 0.0-2.0 % Neutrophils # (Auto) 5.5 1.6-8.6 10 ^3/uL Lymphocytes # (Auto) 1.7 0.4-5.4 10 ^3/uL Monocytes # (Auto) 0.9 0-1.3 10 ^3/uL Eosinophils # (Auto) 0.5 0-0.8 10 ^3/uL Basophils # (Auto) 0.1 0-0.2 10 ^3/uL Nucleated Red Blood Cells 0.1 % Sodium Level 133 L 136-145 mmol/L Potassium Level 3.5 3.5-5.1 mmol/L Chloride Level 97 L 98-107 mmol/L Carbon Dioxide Level 28 20-31 mmol/L Anion Gap 8 5-15 Blood Urea Nitrogen 6 L 9-23 mg/dL Creatinine 0.90 0.700-1.30 mg/dL Glomerular Filtration Rate Calc 99 >90 mL/min BUN/Creatinine Ratio 6.7 L 10.0-20.0 Serum Glucose 104 74-106 mg/dL Lactic Acid Level 1.4 0.4-2.0 mmol/L Calcium Level 8.8 8.7-10.4 mg/dL Total Bilirubin 0.4 0.2-1.0 mg/dL Aspartate Amino Transferase (AST) 11 L 13-40 U/L Alanine Aminotransferase (ALT) 34 7-40 U/L Alkaline Phosphatase 86 46-116 U/L B-Type Natriuretic Peptide 15.57 0-100 pg/mL Total Protein 7.0 5.7-8.2 g/dL Albumin 4.1 3.2-4.8 g/dL Assessment/Plan Assessment/Plan 59-year-old male with a history of COPD, asthma, heart failure, methamphetamine use, and homelessness presenting with SOB, tachypnea, and productive cough. Workup notable for Influenza A positivity. #Acute respiratory failure resolved #Sepsis due to pneumonitis due to influenza A #Asthma/COPD exacerbation #Polysubstance use disorder #Hep C chronic infection? Admit No need of O2 now Regular diet Oseltamivir Ceftriaxone + Azithromycin: COPD exacerbation IV fluids Tylenol and ketorolac Solu Medrol due to wheezing Breathing treatments Hep panel Case discussed with Dr Ramos Plan discussed with: Patient, Other (rn) My Orders Orders - GISELL SANTIAGO RESIDENT Procedure Category Date Status Time Admit ADMIT 09/18/24 Transmitted 20:57 Abg W/ Co-Ox RT 09/18/24 Logged 20:57 Methylprednisolone PHA 09/18/24 In Process Sod Succ (Solu Medrol 21:00 Acetaminophen Tablet PHA 09/18/24 In Process (Tylenol Tablet) 22:00 Mrsa Screen NELA 09/18/24 In Process 21:03 Ipratropium Medneb PHA 09/18/24 In Process (Atrovent Medneb) 22:00 Albuterol Medneb PHA 09/18/24 In Process (Ventolin Medneb) 22:00 Ceftriaxone 1gm/50ml PHA 09/18/24 In Process D5w (Rocephin) 22:00 Azithromycin 500mg/ PHA 09/19/24 In Process 250ml (Zithromax 50 10:00 Oseltamivir 75mg PHA 09/19/24 Logged Capsule (Tamiflu 75mg 00:45 Azithromycin 500mg/ PHA 09/19/24 Verified 250ml (Zithromax 50 00:45 Date of Service: Sep 18, 2024 Billing Provider: ROBERT RAMOS MD Common Visit Codes: [id number] INP/OBS CARE (HIGH) GISELL SANTIAGO RESIDENT Sep 19, 2024 00:42 ROBERT RAMOS MD Sep 19, 2024 10:20
[2024-09-19] MEDS: OSELTAMIVIR 75 MG CAP PO SCH (00:44)
[2024-09-19] MEDS: AZITHROMYCIN 500MG/ 250ML 250 ML IV SCH (00:45)
[2024-09-19 05:46] LABS: Basophils # (auto) 0 10 ^3/uL (0-0.2); Basophils % (auto) 0.3 % (0.0-2.0); Eosinophils # (auto) 0 10 ^3/uL (0-0.8); Eosinophils % (auto) 0.4 % (0.0-7.0); Hematocrit 41.6 % (41.0-53.0); Hemoglobin 14.2 g/dL (13.5-17.5); Lymphocytes # (auto) 0.7 10 ^3/uL (0.4-5.4); Lymphocytes % (auto) 15.8 % (10.0-50.0); Mean Corpuscular Hemoglobin 32.2 pg (28.0-32.0); Mean Corpuscular Hgb Conc. 34.1 g/dL (32.0-36.0); Mean Corpuscular Volume 94.5 fL (80.0-100.0); Monocytes # (auto) 0.1 10 ^3/uL (0-1.3); Monocytes % (auto) 2.4 % (0.0-12.0); Neutrophils # (auto) 3.5 10 ^3/uL (1.6-8.6); Neutrophils % (auto) 81.1 % (37.0-80.0); Platelet Count (auto) 314 10^3/uL (140-450); Red Cell Distribution Width 12.9 % (11.8-14.3); White Blood Cell 4.3 10^3/uL (4.4-10.8)
[2024-09-19 06:13] LABS: Alanine Aminotransferase 29 U/L (7-40); Albumin 3.8 g/dL (3.2-4.8); Alkaline Phosphatase 71 U/L (46-116); Anion Gap 9 (5-15); Aspartate Aminotransferase 20 U/L (13-40); BUN/Creatinine Ratio 11.7 (10.0-20.0); Calcium 8.7 mg/dL (8.7-10.4); Carbon Dioxide 26 mmol/L (20-31); Chloride 106 mmol/L (98-107); Sodium 141 mmol/L (136-145); Total Protein 6.6 g/dL (5.7-8.2)
[2024-09-19 06:15] LABS: Bilirubin, Total 0.4 mg/dL (0.2-1.0)
[2024-09-19 06:40] LABS: Blood Urea Nitrogen 9 mg/dL (9-23); Glucose 147 mg/dL (74-106)
[2024-09-19] MEDS ORDERED: cefTRIAXone 1GM/50ML D5W 50 ML IV SCH (09:00)
[2024-09-19] MEDS ORDERED: AZITHROMYCIN 500MG/ 250ML 250 ML IV SCH (10:00)
[2024-09-19] MEDS ORDERED: levoFLOXacin 500MG 100 ML IV SCH (10:00)
[2024-09-20] VITALS (11 sets, daily range): BP systolic 110–143; BP diastolic 51–83; PULSE 62–98; RESP 16–18; TEMP 97.4–98.2; O2SAT 94–100
--- NOTE | 2024-09-20 17:46 | MEDREC ---
[facility] Intervention Section I [facility] Intervention: Review courses of therapy (PLEASE CONSIDER AZITHROMYCIN IN MONOTHERAPY FOR COPD EXCERBATION - ADD CEFTRIAXONE FOR SUSPICION OF COMMUNITY ACQUIRED PNEUMONIA) ALEXANDRA REESE PHARMACIST Sep 20, 2024 17:46
--- NOTE | 2024-09-20 17:51 | DVHPN2 ---
Subjective in bed still having some SOB He is not hearing voices but has some thoughts about buying some walkie talkies and putting them on the street so people can hear him talk Changes from previous H/P or p: No Changes Eyes: No Pain, No Vision change, No Conjunctivae inflammation, No Eyelid inflammation, No Other, No Redness ENT: No Ear pain, No Ear discharge, No Nose pain, No Nose discharge, No Nose congestion, No Mouth pain, No Mouth swelling, No Throat pain, No Throat swelling, No Other Cardiovascular: No Chest Pain, No Palpitations, No Orthopnea, No Paroxysmal Noc. Dyspnea, No Edema, No Lt Headedness, No Other Respiratory: Cough; No Dry; Shortness of breath; No SOB with excertion, No Wheezing, No Hemoptysis, No Pleuritic Pain; Sputum; No Other Gastrointestinal: No Nausea, No Vomiting, No Abdominal Pain, No Diarrhea, No Constipation, No Melena, No Hematochezia, No Other Genitourinary: No Dysuria, No Frequency, No Incontinence, No Hematuria, No Retention, No Other Musculoskeletal: No other, No neck pain, No shoulder pain, No arm pain, No back pain, No hand pain, No leg pain, No foot pain Skin: No Rash, No Lesions, No Jaundice, No Bruising, No Other Objective Vitals Vital Signs Date Time Temp Pulse Resp B/P (MAP) Pulse Ox O2 Delivery O2 Flow Rate FiO2 09/20/24 16:52 98.0 89 17 138/76 (96) 97 98.0 09/20/24 09:25 Nasal Cannula 2.0 09/20/24 09:25 28 Intake/Output Intake and Output 09/20/24 07:00 Intake Total 300 ml Balance 300 ml Intake Oral 250 ml IV Total 50 ml # Voids 2 General Appearance: Alert, Oriented X3 Lungs: Clear to auscultation Cardiovascular: Regular rate, Normal S1, Normal S2 Medications Current Medications Medications Dose Ordered Sig/Shivani Route Start Time Stop Time Status Last Admin Dose Admin Methylprednisolone Sodium Succinate 40 mg BID IV 09/18/24 21:00 09/20/24 10:13 40 MG Acetaminophen 325 mg Q8HR PO 09/18/24 22:00 09/20/24 05:16 325 MG Ipratropium [place] 0.5 mg Q8HPRN PRN NEB 09/18/24 22:00 09/19/24 17:39 0.5 MG Albuterol 2.5 mg Q8HPRN PRN NEB 09/18/24 22:00 09/19/24 17:39 2.5 MG Ceftriaxone Sodium 50 ml @ 100 mls/hr DAILY@09 IV 09/18/24 22:00 09/20/24 10:12 100 MLS/HR Oseltamivir Phosphate 75 mg Q12HR PO 09/19/24 00:45 09/24/24 00:44 09/20/24 10:12 75 MG Azithromycin 250 ml @ 125 mls/hr DAILY@2200 IV 09/19/24 00:45 09/20/24 02:03 125 MLS/HR Acetaminophen/ Hydrocodone Bitart 1 tab Q6HPRN PRN PO 09/19/24 20:45 Laboratory Results Laboratory Tests 09/19/24 05:05 Urinalysis Test 09/18/24 18:24 Urine Color Light-yellow (Yellow) Urine Clarity Clear (Clear) Urine pH 6.0 (5.0-9.0) Urine Specific [place] 1.012 (1.001-1.035) Urine Protein Negative (Negative) Urine Ketones Negative (Negative) Urine Blood Negative /uL (Negative) Urine Nitrite Negative (Negative) Urine Bilirubin Negative (Negative) Urine Urobilinogen 3 mg/dL (Negative) H Urine Leukocyte Esterase 1+ /uL (Negative) Urine RBC <1 /hpf (0 - 3) Urine Microscopic WBC 1 /HPF (0-3) Urine Squamous Epithelial Cells None seen /hpf (<5) Urine Bacteria None seen /hpf (None Seen) Urine Mucus Few (None Seen) Urine Glucose Normal mg/dL (Normal) Microbiology Microbiology Date/Time Source Procedure Growth Status 09/18/24 22:30 Nose MRSA Screen - Final Complete 09/18/24 19:45 Blood Blood Culture - Preliminary NO GROWTH AFTER 24 HOURS OF INCUBATION. Resulted Assessment/Plan Assessment/Plan #Acute respiratory failure resolved #Sepsis due to superimposed bacterial gram negative pneumonia #Influenza Continue oseltamivir IV abx Blood cx wean off oxygen #Asthma/COPD exacerbation Duonebs #Polysubstance use disorder #Hep C chronic infection? #Psychiatry eval he has some ideas of buying walkie talkies and putting them around for people to hear him? Plan discussed with: Patient Date of Service: Sep 20, 2024 Billing Provider: MISA STONE MD Common Visit Codes: [id number] INP/OBS CARE(HIGH) MISA STONE MD Sep 20, 2024 17:51
[2024-09-21] VITALS (12 sets, daily range): BP systolic 114–144; BP diastolic 57–83; PULSE 46–82; RESP 16–20; TEMP 97.5–98; O2SAT 95–100
[2024-09-21] MEDS: HYDROcodone-ACET 5/325MG TAB PO PRN (04:33)
[2024-09-21 10:27] LABS: Hepatitis A Ab IgM Negative; Hepatitis B Core IgM Negative (Negative); Hepatitis B Surface Antigen Negative (Negative)
[2024-09-21 10:31] LABS: Hepatitis C Antibody Reactive (Negative)
--- NOTE | 2024-09-21 13:34 | DVHINCON2 ---
Date of Service if different f: Sep 21, 2024 Consultation (GIRARD) Labs Laboratory Tests Test 09/18/24 17:30 09/18/24 18:24 09/18/24 20:31 09/18/24 20:39 Lactic Acid Level 1.4 mmol/L (0.4-2.0) B-Type Natriuretic Peptide 15.57 pg/mL (0-100) Urine Color Light-yellow (Yellow) Urine Clarity Clear (Clear) Urine pH 6.0 (5.0-9.0) Urine Specific [place] 1.012 (1.001-1.035) Urine Protein Negative (Negative) Urine Ketones Negative (Negative) Urine Blood Negative /uL (Negative) Urine Nitrite Negative (Negative) Urine Bilirubin Negative (Negative) Urine Urobilinogen 3 mg/dL (Negative) Urine Leukocyte Esterase 1+ /uL (Negative) Urine RBC <1 /hpf (0 - 3) Urine Microscopic WBC 1 /HPF (0-3) Urine Squamous Epithelial Cells None seen /hpf (<5) Urine Bacteria None seen /hpf (None Seen) Urine Mucus Few (None Seen) Urine Glucose Normal mg/dL (Normal) Blood Gas Specimen Type Arterial Blood Gas Sample Site Right radial Blood Gas Patient Temperature 37.0 Arterial Blood Date Drawn [id number] Arterial Blood pH 7.497 (7.350-7.450) Arterial Blood Partial Pressure CO2 31.3 mmHg (35.0-48.0) Arterial Blood Partial Pressure O2 62.3 mmHg (83.0-108.0) Arterial Blood HCO3 23.7 mmol/L (21.0-28.0) Arterial Blood Oxygen Saturation 92.3 % (94.0-98.0) Arterial Blood Base Excess 1.4 mmol/L (-2.0-3.0) Arterial Blood Oxyhemoglobin 91.4 % (94.0-98.0) Arterial Blood Carboxyhemoglobin 0.5 % (0.5-1.5) Arterial Blood Methemoglobin 0.5 % (0.0-1.5) José Luis Test Yes Blood Gas Total Hemoglobin 15.10 g/dL (13.5-17.5) Blood Gas Modality Room air FiO2 % 21.0 Influenza Type A Antigen Positive (Negative) Influenza Type B Antigen Negative (Negative) SARS-CoV-2 Antigen (Rapid) Negative (NEGATIVE) Test 09/18/24 21:09/19/24 05:05 Troponin I High Sensitivity < 3 ng/L (</=54) White Blood Count 4.3 10^3/uL (4.4-10.8) Red Blood Count 4.40 10^6/uL (4.5-5.90) Hemoglobin 14.2 g/dL (13.5-17.5) Hematocrit 41.6 % (41.0-53.0) Mean Corpuscular Volume 94.5 fL (80.0-100.0) Mean Corpuscular Hemoglobin 32.2 pg (28.0-32.0) Mean Corpuscular Hemoglobin Concent 34.1 g/dL (32.0-36.0) Red Cell Distribution Width 12.9 % (11.8-14.3) Platelet Count 314 10^3/uL (140-450) Mean Platelet Volume 6.2 fL (6.9-10.8) Neutrophils (%) (Auto) 81.1 % (37.0-80.0) Lymphocytes (%) (Auto) 15.8 % (10.0-50.0) Monocytes (%) (Auto) 2.4 % (0.0-12.0) Eosinophils (%) (Auto) 0.4 % (0.0-7.0) Basophils (%) (Auto) 0.3 % (0.0-2.0) Neutrophils # (Auto) 3.5 10 ^3/uL (1.6-8.6) Lymphocytes # (Auto) 0.7 10 ^3/uL (0.4-5.4) Monocytes # (Auto) 0.1 10 ^3/uL (0-1.3) Eosinophils # (Auto) 0 10 ^3/uL (0-0.8) Basophils # (Auto) 0 10 ^3/uL (0-0.2) Nucleated Red Blood Cells 0.0 % Sodium Level 141 mmol/L (136-145) Potassium Level 4.0 mmol/L (3.5-5.1) Chloride Level 106 mmol/L (98-107) Carbon Dioxide Level 26 mmol/L (20-31) Anion Gap 9 (5-15) Blood Urea Nitrogen 9 mg/dL (9-23) Creatinine 0.77 mg/dL (0.700-1.30) Glomerular Filtration Rate Calc 104 mL/min (>90) BUN/Creatinine Ratio 11.7 (10.0-20.0) Serum Glucose 147 mg/dL (74-106) Calcium Level 8.7 mg/dL (8.7-10.4) Total Bilirubin 0.4 mg/dL (0.2-1.0) Aspartate Amino Transf (AST/SGOT) 20 U/L (13-40) Alanine Aminotransferase (ALT/SGPT) 29 U/L (7-40) Alkaline Phosphatase 71 U/L (46-116) Total Protein 6.6 g/dL (5.7-8.2) Albumin 3.8 g/dL (3.2-4.8) Hepatitis A IgM Antibody Negative Hepatitis B Surface Antigen Negative (Negative) Hepatitis B Core IgM Antibody Negative (Negative) Hepatitis C Antibody Reactive (Negative) Microbiology Date/Time Source Procedure Growth Status 09/20/24 21:30 Sputum Expectorated Sputum Gram Stain - Final Resulted 09/20/24 21:30 Sputum Expectorated Sputum Respiratory Culture - Preliminary Resulted 09/18/24 22:30 Nose MRSA Screen - Final Complete 09/18/24 19:45 Blood Blood Culture - Preliminary NO GROWTH AFTER 48 HOURS OF INCUBATION. Resulted Appetite: Good Appearance: Older than stated age, Groomed Psychomotor activity: WNL Behavioral: Cooperative Eye contact: Appropriate Speech: WNL Affect: Appropriate Mood: Euthymic Thought processes: Linear/Goal-directed Thought content: WNL Suicidal ideations: Absent Homicidal ideations: Absent Orientation: Person, Place, Time, Situation Memory intact: Recent Intellect: Average Abstractability: WNL Concentration: Adequate Attention: Adequate Judgement: WNL Insight: Fair Vitals Vital Signs Date Time Temp Pulse Resp B/P (MAP) Pulse Ox O2 Delivery O2 Flow Rate FiO2 09/21/24 12:42 97.8 82 16 116/77 (90) 99 97.8 09/21/24 08:00 Nasal Cannula* 2 28 Current medications Current Medications Medications Dose Ordered Sig/Shivani Route Start Time Stop Time Status Last Admin Dose Admin Methylprednisolone Sodium Succinate 40 mg BID IV 09/18/24 21:00 09/21/24 09:51 40 MG Acetaminophen 325 mg Q8HR PO 09/18/24 22:00 09/21/24 06:26 325 MG Ipratropium [place] 0.5 mg Q8HPRN PRN NEB 09/18/24 22:00 09/21/24 07:09 0.5 MG Albuterol 2.5 mg Q8HPRN PRN NEB 09/18/24 22:00 09/21/24 07:09 2.5 MG Ceftriaxone Sodium 50 ml @ 100 mls/hr DAILY@09 IV 09/18/24 22:00 09/21/24 09:51 100 MLS/HR Oseltamivir Phosphate 75 mg Q12HR PO 09/19/24 00:45 09/24/24 00:44 09/21/24 09:51 75 MG Azithromycin 250 ml @ 125 mls/hr DAILY@2200 IV 09/19/24 00:45 09/20/24 21:28 125 MLS/HR Acetaminophen/ Hydrocodone Bitart 1 tab Q6HPRN PRN PO 09/19/24 20:45 09/21/24 09:52 1 TAB Medication adjusted: No Diagnosis: unspecified mood disorder, polysubstance use disorder Plan : -Patient denies suicidal/homicidal ideation/ No signs of psychotic symptoms currently -Pt does not meet LPS hold criteria for hold. He may discharge after medical clearance -please provide social work consult/referral for housing resources History of Present Illness Reason for Consult : He reported idea of having walkie talkie and putting them around so people can hear him HPI : This is a 59-year-old male with hx of polysubstance use, presented to hospital for SOB. Patient is evaluated via telepsychiatry platform On evaluation, he report feeling better now that he is here. he reports challenges with homelessness for the last 4 years. He tries to explain the walkie talkie idea came from not having a way to communicate with other people. He reports sometimes businesses close and he needs to use the restroom and has to go outside. He is unable to clearly state how a walkie talkie would help with this. He reports living in backyard of a friend's house but he left when it became too cold. He started having trouble breathing and arrived here via ambulance. He denies feeling depressed, anxious, hopeless or anhedonia. He denies suicidal/homicidal ideation. He denies auditory/visual hallucinations or paranoid thoughts. No signs of responding to unseen stimuli. He denies having psychosis with substance use. He would like help with receiving social security benefits and housing Past Psychiatric History : he denies prior 5150 holds, psychiatric hospitalizations or suicide attempts. He denies prior mental health diagnoses. He denies current use or past use of psychotropic medication. He denies current outpatient mental health follow up. Past Medical History : Hx of asthma, COPD, Hep C Social History : He reports being homeless for the past 4 years. He is , reports was killed 8 years ago. He has 4 adult children, does not see them often. He admits to substance of methamphetamines, reports sobriety x2 weeks. He uses marijuana but has stopped since his recent SOB. He drinks one beer daily after his coffee. He denies any IV drug use or other substance use. No toxicology available. He denies any known family history. he is unemployed and receives EBT with $296 per month. CHUY HERNANDES [facility] Sep 21, 2024 13:34
--- NOTE | 2024-09-21 17:28 | DVHPN2 ---
Subjective in bed still having some SOB Changes from previous H/P or p: No Changes Eyes: No Pain, No Vision change, No Conjunctivae inflammation, No Eyelid inflammation, No Other, No Redness ENT: No Ear pain, No Ear discharge, No Nose pain, No Nose discharge, No Nose congestion, No Mouth pain, No Mouth swelling, No Throat pain, No Throat swelling, No Other Cardiovascular: No Chest Pain, No Palpitations, No Orthopnea, No Paroxysmal Noc. Dyspnea, No Edema, No Lt Headedness, No Other Respiratory: Cough, Shortness of breath, Sputum Gastrointestinal: No Nausea, No Vomiting, No Abdominal Pain, No Diarrhea, No Constipation, No Melena, No Hematochezia, No Other Genitourinary: No Dysuria, No Frequency, No Incontinence, No Hematuria, No Retention, No Other Musculoskeletal: No other, No neck pain, No shoulder pain, No arm pain, No back pain, No hand pain, No leg pain, No foot pain Skin: No Rash, No Lesions, No Jaundice, No Bruising, No Other Objective Vitals Vital Signs Date Time Temp Pulse Resp B/P (MAP) Pulse Ox O2 Delivery O2 Flow Rate FiO2 09/21/24 17:08 97.9 68 16 135/72 (93) 97 97.9 09/21/24 08:00 Nasal Cannula* 2 28 Intake/Output Intake and Output 09/21/24 07:00 Intake Total 1800 ml Balance 1800 ml Intake Oral 1550 ml IV Total 250 ml # Voids 9 General Appearance: Alert, Oriented X3 Lungs: Clear to auscultation Cardiovascular: Regular rate, Normal S1, Normal S2 Medications Current Medications Medications Dose Ordered Sig/Shivani Route Start Time Stop Time Status Last Admin Dose Admin Methylprednisolone Sodium Succinate 40 mg BID IV 09/18/24 21:00 09/21/24 09:51 40 MG Acetaminophen 325 mg Q8HR PO 09/18/24 22:00 09/21/24 06:26 325 MG Ipratropium [place] 0.5 mg Q8HPRN PRN NEB 09/18/24 22:00 09/21/24 07:09 0.5 MG Albuterol 2.5 mg Q8HPRN PRN NEB 09/18/24 22:00 09/21/24 07:09 2.5 MG Ceftriaxone Sodium 50 ml @ 100 mls/hr DAILY@09 IV 09/18/24 22:00 3/6/25 09:51 100 MLS/HR Oseltamivir Phosphate 75 mg Q12HR PO 09/19/24 00:45 09/24/24 00:44 09/21/24 09:51 75 MG Azithromycin 250 ml @ 125 mls/hr DAILY@2200 IV 09/19/24 00:45 09/20/24 21:28 125 MLS/HR Acetaminophen/ Hydrocodone Bitart 1 tab Q6HPRN PRN PO 09/19/24 20:45 09/21/24 09:52 1 TAB Laboratory Results Laboratory Tests 09/19/24 05:05 Urinalysis Test 09/18/24 18:24 Urine Color Light-yellow (Yellow) Urine Clarity Clear (Clear) Urine pH 6.0 (5.0-9.0) Urine Specific [place] 1.012 (1.001-1.035) Urine Protein Negative (Negative) Urine Ketones Negative (Negative) Urine Blood Negative /uL (Negative) Urine Nitrite Negative (Negative) Urine Bilirubin Negative (Negative) Urine Urobilinogen 3 mg/dL (Negative) H Urine Leukocyte Esterase 1+ /uL (Negative) Urine RBC <1 /hpf (0 - 3) Urine Microscopic WBC 1 /HPF (0-3) Urine Squamous Epithelial Cells None seen /hpf (<5) Urine Bacteria None seen /hpf (None Seen) Urine Mucus Few (None Seen) Urine Glucose Normal mg/dL (Normal) Microbiology Microbiology Date/Time Source Procedure Growth Status 09/20/24 21:30 Sputum Expectorated Sputum Gram Stain - Final Resulted 09/20/24 21:30 Sputum Expectorated Sputum Respiratory Culture - Preliminary Resulted 09/18/24 22:30 Nose MRSA Screen - Final Complete 09/18/24 19:45 Blood Blood Culture - Preliminary NO GROWTH AFTER 48 HOURS OF INCUBATION. Resulted Assessment/Plan Assessment/Plan #Acute respiratory failure resolved #Sepsis due to superimposed bacterial gram negative pneumonia #Influenza Continue oseltamivir IV abx Blood cx wean off oxygen #Asthma/COPD exacerbation Duonebs #Polysubstance use disorder #Hep C chronic infection? #Psychiatry eval he has some ideas of buying walkie talkies and putting them around for people to hear him? Plan discussed with: Patient My Orders Orders - MISA STONE MD Procedure Category Date Status Time *Tele Psych Consult CONS 09/20/24 Transmitted 17:51 Date of Service: Sep 21, 2024 Billing Provider: MISA STONE MD Common Visit Codes: [id number] INP/OBS CARE(HIGH) MISA STONE MD Sep 21, 2024 17:28
[2024-09-22] VITALS (9 sets, daily range): BP systolic 124–147; BP diastolic 71–83; PULSE 53–95; RESP 18–20; TEMP 97.7–98.3; O2SAT 94–100
[2024-09-22] MEDS: MELATONIN 5 MG TAB PO SCH (01:59)
[2024-09-22] MEDS ORDERED: ALBUAER3 IN (12:24)
[2024-09-22] MEDS ORDERED: FLUT100M IN (12:24)
[2024-09-22] MEDS ORDERED: AUG875T PO (12:25)
== END 2024-09-22 14:55 | disposition home or self-care (01) | DRG 720 ==
LOC: EDBD 17:03 → ER 17:03 → EDSEX 17:03 → OVERFLOW 20:57 → EAST 09-19 22:32 → TELE-EAST 09-20 02:26
PROVIDERS: ADMIT Hospitalist; ATTEND Hospitalist
DX: A41.50 Gram-negative sepsis, unspecified (principal); J96.00 Acute respiratory failure, unspecified whether with hypoxia or hypercapnia; J15.69 Pneumonia due to other Gram-negative bacteria; J11.08 Influenza due to unidentified influenza virus with specified pneumonia; J44.0 Chronic obstructive pulmonary disease with (acute) lower respiratory infection; I50.9 Heart failure, unspecified; J44.1 Chronic obstructive pulmonary disease with (acute) exacerbation; J45.901 Unspecified asthma with (acute) exacerbation; Z20.822 Contact with and (suspected) exposure to COVID-19; B19.20 Unspecified viral hepatitis C without hepatic coma; F12.10 Cannabis abuse, uncomplicated; F15.10 Other stimulant abuse, uncomplicated; F17.210 Nicotine dependence, cigarettes, uncomplicated; Z59.00 Homelessness unspecified; Z79.1 Long term (current) use of non-steroidal anti-inflammatories (NSAID); Z79.899 Other long term (current) drug therapy; Z79.2 Long term (current) use of antibiotics
CPT/HCPCS: 36415; 36600; 71045; 80053; 80074; 81001; 82805; 83605; 83880; 84484; 85025; 87040; 87070; 87081; 87205; 87426; 87804; 93005; 94640; 96361; 96374; 99291; G0378; J1885

== ENCOUNTER 2024-12-08 15:17 | Emergency (ER) | payer MEDICAID ==
[~2024-12-08] VITALS: Ht 175.3 cm; Wt 59.1 kg
--- NOTE | 2024-12-08 16:21 | ED.PDOC ---
History of Present Illness HPI Comments 59 year old male presents to the ED with a prior Social Hx of Tobacco, Marijuana, and Methamphetamine use associated to the c/c of Abdominal wound/rash. Pt states that he has had this wound/rash for that past 5x months and notes that he "has not idea where it came from". Notes that wound/rash covered RLQ, Suprapubic and Periumbilical areas. Pt states that there was no form of trauma involved into receiving his injury. Pt states that he no alleviating factors at this time. Pt Denies fever, chills, coughing, N/V/D, SOB, Chest pain, or other associated symptoms, modifiers, or recent injuries or sick contact that this time. Vital signs were stable at arrival. Chief Complaint: Wound Check Time Seen by MD: 16:17 Primary Care Provider: NONE Reviewed Notes: Nurses Notes, Medications, Allergies Allergies: Coded Allergies: NO KNOWN ALLERGIES (Unverified , 10/31/18) Home Meds Active Scripts Amoxicillin & Pot Clavulanate (AUGMENTIN TABLET) 875 Mg Tb, 875 MG PO BID for 10 Days, #20 TAB Prov:MISA STONE MD 09/22/24 Fluticasone-Salmeterol (Advair Diskus 100-50 Mcg/Dose) 1 Aer Aer, 1 AER IN BID for 30 Days, #1 AER 3 Refills Prov:MISA STONE MD 09/22/24 Albuterol Sulfate (VENTOLIN MDI) 90 Mcg Ih, 90 MCG IN PRN for 30 Days, #1 INH Prov:MISA STONE MD 09/22/24 Albuterol Sulfate (Albuterol Sulfate Hfa) 108 Mcg/Act Aer, 108 MCG IN Q6HPRN PRN for 20 Days, #1 AER Prov:JEREMIE NORIEGA DO 05/12/24 Information Source: Patient Mode of Arrival: Ambulatory Severity: Moderate Timing: Months Duration: Since onset, Other (months) Prehospital treatment: None Past Medical History PAST MEDICAL HISTORY: Asthma Surgical History: Denies all surgeries Family History Family History: Reviewed,noncontributory to illness Social History Smoker: Cigarettes, Less Than 1 Pack/Day Alcohol: Occasionally Drugs: Marijuana, Methamphetamine, Other Lives In: Homeless Constitutional: denies: chills, diaphoresis, fatigue, fever, malaise, sweats, weakness, others EENTM: denies: blurred vision, double vision, ear bleeding, ear discharge, ear drainage, ear pain, ear ringing, eye pain, eye redness, hearing loss, mouth pain, mouth swelling, nasal discharge, nose bleeding, nose congestion, nose pain, photophobia, tearing, throat pain, throat swelling, voice changes, others Respiratory: denies: cough, hemoptysis, orthopnea, SOB at rest, shortness of breath, SOB with excertion, stridor, wheezing, others Cardiovascular: denies: chest pain, dizzy spells, diaphoresis, Dyspnea on exertion, edema, irregular heart beat, left arm pain, lightheadedness, palpitations, PND, syncope, others Gastrointestinal: denies: abdomen distended, abdominal pain, blood streaked bowels, constipated, diarrhea, dysphagia, difficulty swallowing, hematemesis, melena, nausea, poor appetite, poor fluid intake, rectal bleeding, rectal pain, vomiting, others Genitourinary: denies: burning, dysuria, flank pain, frequency, hematuria, incontinence, penile discharge, penile sore, pain, testicle pain, testicle s welling, urgency, others Neurological: denies: dizziness, fainting, headache, left sided numbness, left sided weakness, numbness, paresthesia, pre-existing deficit, right sided numbness, right sided weakness, seizure, speech problems, tingling, tremors, weakness, others Musculoskeletal: denies: back pain, gout, joint pain, joint swelling, muscle pain, muscle stiffness, neck pain, others Integumetry: reports: rash; denies: bruises, change in color, change in hair/nails, dryness, laceration, lesions, lumps, wounds, others Allergic/Immunocompromised: denies: Difficulty Healing, Frequent Infections, Hives, Itching, others Hematologic/Lymphatic: denies: anemia, blood clots, easy bleeding, easy bruising, swollen glands, others Endocrine: denies: excessive hunger, excessive sweating, excessive thirst, excessive urination, flushing, intolerance to cold, intolerance to heat, unexplained weight gain, unexplained weight loss, others Psychiatric: denies: anxiety, bipolar disorder, depression, hopeless, panic disorder, schizophrenia, sleepless, suicidal, others All Other Systems: Reviewed and Negative Physical Exam General Appearance: Mild Distress (Patient only complains of mild discomfort due to rash.), Normal HEENT: Normal ENT Inspection, Pharynx Normal, TMs Normal Neck: Full Range of Motion, Non-Tender, Normal, Normal Inspection Respiratory: Chest Non-Tender, Lungs Clear, No Accessory Muscle Use, No Respiratory Distress, Normal Breath Sounds Cardiovascular: No Edema, No JVD, No Murmur, No Gallop, Normal Peripheral Pulses, Regular Rate/Rhythm Breast Exam: Deferred Gastrointestinal: No Organomegaly, Non Tender, No Pulsatile Mass, Normal Bowel Sounds, Soft Genitalia: Deferred Pelvic: Deferred Rectal: Deferred Extremities: No calf tenderness, Normal capillary refill, Normal range of motion, Non-tender, No pedal edema Musculoskeletal : Apperance: Normal Neurologic: Alert, No Motor Deficits, Normal Affect, Normal Mood, No Sensory Deficits Cerebellar Function: Normal Reflexes: Normal Skin: Dry, Rash (Patient has a larger than palm size rash on the right lower quadrant region of his abdomen with significant tissue excoriation as well as weepage, erythema and mild edema. Difficult to see if there any penetrating ports. Patient states only mild complaints of pain.), Warm Lymphatic: No Adenopathy Was a procedure done? Was a procedure done?: No Differential Dx Considerations may include: Cellulitis, skin infection, sepsis, electrolyte abnormality, abdominal abscess X-Ray, Labs, Meds, VS Vital Signs Date Time Temp Pulse Resp B/P (MAP) Pulse Ox O2 Delivery O2 Flow Rate FiO2 12/08/24 19:30 97 16 100 Room Air* 0 21 12/08/24 19:30 99.2 97 16 126/63 (84) 100 99.2 12/08/24 18:31 98.1 92 16 127/71 (89) 94 98.1 12/08/24 16:17 97.9 79 18 123/80 (94) 97 97.9 Lab Test 12/08/24 16:46 Range/Units White Blood Count 5.1 4.4-10.8 10^3/uL Red Blood Count 4.82 4.5-5.90 10^6/uL Hemoglobin 15.4 13.5-17.5 g/dL Hematocrit 45.0 41.0-53.0 % Mean Corpuscular Volume 93.4 80.0-100.0 fL Mean Corpuscular Hemoglobin 31.9 28.0-32.0 pg Mean Corpuscular Hemoglobin Concent 34.2 32.0-36.0 g/dL Red Cell Distribution Width 12.8 11.8-14.3 % Platelet Count 273 140-450 10^3/uL Mean Platelet Volume 6.5 L 6.9-10.8 fL Neutrophils (%) (Auto) 52.1 37.0-80.0 % Lymphocytes (%) (Auto) 34.8 10.0-50.0 % Monocytes (%) (Auto) 9.2 0.0-12.0 % Eosinophils (%) (Auto) 3.4 0.0-7.0 % Basophils (%) (Auto) 0.5 0.0-2.0 % Neutrophils # (Auto) 2.6 1.6-8.6 10 ^3/uL Lymphocytes # (Auto) 1.8 0.4-5.4 10 ^3/uL Monocytes # (Auto) 0.5 0-1.3 10 ^3/uL Eosinophils # (Auto) 0.2 0-0.8 10 ^3/uL Basophils # (Auto) 0 0-0.2 10 ^3/uL Nucleated Red Blood Cells 0.1 % Sodium Level 137 136-145 mmol/L Potassium Level 3.8 3.5-5.1 mmol/L Chloride Level 100 98-107 mmol/L Carbon Dioxide Level 29 20-31 mmol/L Anion Gap 8 5-15 Blood Urea Nitrogen 6 L 9-23 mg/dL Creatinine 0.78 0.700-1.30 mg/dL Glomerular Filtration Rate Calc 103 >90 mL/min BUN/Creatinine Ratio 7.7 L 10.0-20.0 Serum Glucose 120 H 74-106 mg/dL Calcium Level 9.6 8.7-10.4 mg/dL Total Bilirubin 0.4 0.2-1.0 mg/dL Aspartate Amino Transferase (AST) 28 13-40 U/L Alanine Aminotransferase (ALT) 31 7-40 U/L Alkaline Phosphatase 101 46-116 U/L Total Protein 7.2 5.7-8.2 g/dL Albumin 4.3 3.2-4.8 g/dL Current Medications Medications (Trade) Dose Ordered Sig/Shivani Route Start Time Stop Time Status Last Admin Diphtheria/ Tetanus/Acell Pertussis (Boostrix T-Dap) 0.5 ml ONCE ONCE IM 12/08/24 16:15 12/08/24 16:16 DC 12/08/24 19:31 Acetaminophen/ Hydrocodone Bitart ([place] 5/325MG Tab) 1 tab ONCE ONCE PO 12/08/24 18:45 12/08/24 18:46 DC 12/08/24 19:31 Ketorolac Tromethamine (Toradol Injection) 30 mg ONCE ONCE IV 12/08/24 19:30 12/08/24 19:44 DC 12/08/24 19:30 X-Ray, Labs, Meds, VS Comment All studies performed the ED were evaluated by me personally. Serum studies were unremarkable for any sepsis or electrolyte concerns. Urinalysis was unremarkable for any urinary concerns. CT of the abdomen was utilize due to the extensive nature of the wound and concerns of intra-abdominal abscess formation. CT was unremarkable for any abscess formation. Patient will be sent home with oral antibiotics and advised to follow up with a primary care provider in a week to 10 days for re-evaluation. Follow up patient should return to ED in a week to 10 days if he can not follow up with the primary care provider. Time of 1ST Reevaluation: 20:29 Reevaluation 1ST: Improved Consultation: PCP Patient Education/Counseling: Diagnosis, Treatment Family Education/Counseling: Diagnosis, Treatment, No Family Present Departure 1 Departure Time of Disposition: 20:30 Impression: Primary Impression: Cellulitis Disposition: 01 HOME / SELF CARE / HOMELESS Condition: Stable Additional Instructions: Advised patient utilize antibiotics as directed until completion. Patient should follow up with the primary care provider in a week to 10 days for re-evaluation. e-Prescriptions Bacitracin Base (Bacitracin) 500 Unit/Gm Oin 500 UNIT TOP BID, #30 GM 1 Refill Prov: TREVA DEMPSEY PAC 12/08/24 Cephalexin (KEFLEX CAPSULE) 250 Mg Cp 1 CAP PO QID for 10 Days, #40 CAP Prov: TREVA DEMPSEY PAC 12/08/24 Discharged With: Self Critical Care Note Critical Care Time?: No Stability Stability form required: No Heart Score Heart Score: Heart Score Response (Comments) Value History N/A 0 EKG N/A 0 Age N/A 0 Risk Factors N/A 0 Troponin N/A 0 Total 0 I personally scribed for TREVA DEMPSEY PAC ([email or web address]) on 12/08/24 at 16:21. Electr onically submitted by Harvey Delgado ([email or web address]). TREVA DEMPSEY PAC December 08, 2024 16:21
[2024-12-08 17:08] LABS: Basophils # (auto) 0 10 ^3/uL (0-0.2); Basophils % (auto) 0.5 % (0.0-2.0); Eosinophils # (auto) 0.2 10 ^3/uL (0-0.8); Eosinophils % (auto) 3.4 % (0.0-7.0); Hemoglobin 15.4 g/dL (13.5-17.5); Lymphocytes # (auto) 1.8 10 ^3/uL (0.4-5.4); Lymphocytes % (auto) 34.8 % (10.0-50.0); Mean Corpuscular Hemoglobin 31.9 pg (28.0-32.0); Mean Corpuscular Hgb Conc. 34.2 g/dL (32.0-36.0); Mean Corpuscular Volume 93.4 fL (80.0-100.0); Monocytes # (auto) 0.5 10 ^3/uL (0-1.3); Monocytes % (auto) 9.2 % (0.0-12.0); Neutrophils # (auto) 2.6 10 ^3/uL (1.6-8.6); Neutrophils % (auto) 52.1 % (37.0-80.0); Nucleated Red Blood Cells % 0.1 %; Platelet Count (auto) 273 10^3/uL (140-450); Red Blood Cells 4.82 10^6/uL (4.5-5.90); Red Cell Distribution Width 12.8 % (11.8-14.3); White Blood Cell 5.1 10^3/uL (4.4-10.8)
[2024-12-08 17:22] LABS: Alanine Aminotransferase 31 U/L (7-40); Albumin 4.3 g/dL (3.2-4.8); Alkaline Phosphatase 101 U/L (46-116); Anion Gap 8 (5-15); Aspartate Aminotransferase 28 U/L (13-40); BUN/Creatinine Ratio 7.7 (10.0-20.0); Bilirubin, Total 0.4 mg/dL (0.2-1.0); Calcium 9.6 mg/dL (8.7-10.4); Carbon Dioxide 29 mmol/L (20-31); Chloride 100 mmol/L (98-107); Potassium 3.8 mmol/L (3.5-5.1); Sodium 137 mmol/L (136-145); Total Protein 7.2 g/dL (5.7-8.2)
[2024-12-08 17:23] LABS: Blood Urea Nitrogen 6 mg/dL (9-23); Glucose 120 mg/dL (74-106)
[2024-12-08] MEDS ORDERED: KETOROLAC TROMETH 30 MG/ML 1ML VIAL IM ONE (18:45)
[2024-12-08 19:30] VITALS: PULSE 97; RESP 16; TEMP 99.2; O2SAT 100
[2024-12-08] MEDS: KETOROLAC TROMETH 30 MG/ML 1ML VIAL IV ONE (19:30)
[2024-12-08] MEDS: HYDROcodone-ACET 5/325MG TAB PO ONE (19:31)
[2024-12-08] MEDS: TETANUS-DIPTH-ACEL PERTUSSIS 0.5ML SYR Tdap IM ONE (19:31)
[2024-12-08] MEDS: IOHEXOL 300 MG/ML 100ML BOTTLE IJ ONE (19:45)
--- NOTE | 2024-12-08 20:12 | DVH ---
Exam: CT CT AB PEL WITH IV CON ONLY History: Large excoriated belly wound/rule out any abscess formation Comparison Study: None TECHNIQUE: Multidetector CT of the abdomen and pelvis with IV contrast. Axial, coronal and sagittal multiplanar reformats were obtained from the axial data set by the technologist. Radiation Dose Information: CT Dose: CTDI volume is 6.95 mGy. Dose-length product is 352.76 mGy*cm FINDINGS: The lung bases are clear. Partially visualized heart is unremarkable. Mild hepatomegaly. Otherwise, liver, spleen, gallbladder, pancreas and adrenal glands are unremarkab le. Kidneys, and ureters are unremarkable. Mild distention of the urinary bladder. Mild wall thickening of the urinary bladder. Prostate is unremarkable. Material filled moderately distended stomach. Mild wall Thickening of proximal small bowel loops. The remainder of the small bowel loops are fluid-filled and nondistended. Appendix is not completely vis ualized with the visualized appendix unremarkable. Without complete visualization of the appendix, c an not exclude acute appendicitis. Moderate to large amount of fecal material within the colon. No evidence of intraperitoneal free air or free fluid. No evidence of aortic aneurysm or dissection. No significant lymphadenopathy. Small fat containing right inguinal hernia. Mild body wall edema. Right ventral mid to lower abdomin al skin thickening. Moderate left ventral upper abdominal fat containing hernia also containing parti al wall of the transverse colon with partial wall of the stomach extending into the hernia neck Right inguinal lymphadenopathy which may be reactive/neoplastic. No destructive osseous lesions are n oted. IMPRESSION: No abscess is visualized. Mild wall thickening of the urinary bladder. Recommend correlation with urinalysis for cystitis. Wall thickening of proximal small bowel loops with the remainder of the small bowel loops Fluid-fill ed and nondistended. Correlate for enteritis. Moderate ventral left upper abdominal hernia containing partial wall of the transverse colon with the gastric wall extending into the hernia neck. Mild body wall edema. Skin thickening of the right mid to lower ventral abdomen. Right inguinal lymphadenopathy is most likely reactive. Moderate to large amount of fecal material within the colon.
[2024-12-08] MEDS ORDERED: BACIOIN15 TOP (20:31)
[2024-12-08] MEDS ORDERED: CEPH250C PO (20:31)
[2024-12-08] MEDS: CEPHALEXIN 250 MG CAP PO ONE (21:31)
[2024-12-08 21:35] VITALS: BP 129/76; PULSE 82; RESP 16; O2SAT 97
== END 2024-12-08 21:41 | disposition home or self-care (01) ==
LOC: ER 15:17
DX: L03.311 Cellulitis of abdominal wall (principal); J45.909 Unspecified asthma, uncomplicated; F17.210 Nicotine dependence, cigarettes, uncomplicated; F19.90 Other psychoactive substance use, unspecified, uncomplicated; F10.90 Alcohol use, unspecified, uncomplicated; Y90.9 Presence of alcohol in blood, level not specified; Z59.00 Homelessness unspecified; Z79.899 Other long term (current) drug therapy; Z79.51 Long term (current) use of inhaled steroids
CPT/HCPCS: 36415; 74177; 80053; 85025; 90471; 90715; 96374; 99285; J1885; Q9967